=== PATIENT | male | born 1980 | race Caucasian/White ===

== ENCOUNTER 2024-04-21 10:45 | Inpatient (IN) ==
--- NOTE | 2024-04-21 11:35 | Emergency Department Note ---
History of Present Illness General Chief Complaint: Abdominal Pain Stated Complaint: LOWER ABD PAIN, POSSIBLE ADHESSION FROM SURG Time Seen by Provider: 04/21/24 11:04 History of Present Illness Provider Complaint: abdominal pain Onset (ago): 2 day(s) Pain Consistency: intermittent Location: LLQ Radiation: LUQ, RUQ and RLQ Maximum Pain Intensity: 6 Current Pain Intensity: 6 Quality: + stabbing and + sharp Relieved By: + nothing Exacerbated By: + nothing Context: no foreign travel, no possible food poisoning, no sick contacts, no recent antibiotic use, no recent surgery/procedure or no recent injury Associated Symptoms: + nausea and + vomiting; no diarrhea, no fever, no chills, no constipation, no dysuria, no hematemesis, no hematochezia, no melena, no hematuria, no chest pain and no breathing difficulty Patient reports he was in an outside facility yesterday and had a CT scan done which showed a small bowel obstruction and they wanted to send him to another facility but he refused and left. Home Medications Medication Instructions Recorded Confirmed Type triamcinolone acetonide 0.1 % 1 applic topical DAILY PRN ud 08/21/22 04/21/24 History topical cream clobetasol 0.05 % topical cream 1 applic topical DAILY PRN Other 01/30/23 04/21/24 History acetaminophen 500 mg tablet 500 mg PO Q6H PRN Pain 04/21/24 04/21/24 History calcipotriene 0.005 % topical 1 applic topical DAILY PRN flare 04/21/24 04/21/24 History ointment clobetasol 0.05 % topical ointment 1 applic topical DAILY 04/21/24 04/21/24 History cyclobenzaprine 10 mg tablet 10 mg PO TID PRN Muscle Spasms 04/21/24 04/21/24 History Allergies Allergy/AdvReac Type Severity Reaction Status Date / Time neomycin Allergy Unknown unsure - Verified 04/21/24 13:43 as a child Past Med/Surg History Problem List SBO (small bowel obstruction) (Acute) Adenocarcinoma of rectosigmoid junction (Chronic) Encounter for pre-operative examination BRBPR (bright red blood per rectum) Rectal cancer Medical History Rectal cancer dx'd 08/2022. oral chemo + radiation. Skin cancer, basal cell History of COVID-2020 -- moderate to severe flu like symptoms - no hospitalization Psoriasis Surgical History H/O colectomy Port-A-Cath in place (10/24/22) Insertion Access Port with Fluoroscopy(Right) - Nemesio Dinh, , FACS Hx of colonoscopy History of tooth extraction Family History Mother No problems noted. Father Throat cancer Family/Other No history of cancer Pt has 5 1/2 brothers - no cancer Pt has 2 1/2 sisters and 1 sister - no cancer Son No problems noted. Daughter No problems noted. Daughter No problems noted. Other No family history of adverse response to anesthesia Denies family history of Crohn's disease Colorectal cancer Ulcerative colitis Social History Smoking Status: Former smoker Tobacco Type: Cigarettes Age Started Using Tobacco: 19; Age Quit Using Tobacco: 34; Cigarettes Per Day: 1/2 PPD when smoked; Second Hand Exposure: No; Do You Dip or Chew Tobacco: Yes (advised. 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 How many Children do You have: 3 Feels Safe at Home: Yes Diet: regular caffeine: Yes (3-5 cups/day) during the past year weight has: remained stable Assistive Devices: None Physical Exam 2 Vital Signs: Vital Signs - 24 hr 04/21/24 10:59 04/21/24 11:44 04/21/24 11:47 Temperature 36.6 C Temperature Source Temporal Artery Sc an Pulse Rate 71 Pulse Rate [Apical ] 64 Pulse Rhythm [Apic al] Pulse Strength [Ap ical] Normal Respiratory Rate 17 18 Respiratory Effort / Characteristics Non-Labored Sponta neous Non-Labored Sponta neous Respiratory Depth Normal Normal Respiratory Patter n Regular Regular Blood Pressure 129/83 Blood Pressure [Ri ght Arm] 123/83 Blood Pressure Janessa n 98 Blood Pressure Janessa n [Right Arm] 96 Blood Pressure Pos ition [Right Arm] Pulse Oximetry 97 97 97 Oxygen Delivery Me thod Room Air Room Air Room Air Sepsis Recent Feve r Within 48 Hours No Sepsis New/Unexpla ined Change in Men bettye Status N/A Sepsis Action Take n by Nursing No Action Required 04/21/24 12:33 04/21/24 13:55 04/21/24 15:00 Temperature Temperature Source Pulse Rate 69 Pulse Rate [Apical ] 66 65 Pulse Rhythm [Apic al] Regular Pulse Strength [Ap ical] Normal Normal Respiratory Rate 18 18 Respiratory Effort / Characteristics Non-Labored Sponta neous Non-Labored Sponta neous Respiratory Depth Normal Normal Respiratory Patter n Regular Regular Blood Pressure Blood Pressure [Ri ght Arm] 114/84 116/86 Blood Pressure Janessa n Blood Pressure Janessa n [Right Arm] 94 96 Blood Pressure Pos ition [Right Arm] Lying Pulse Oximetry 97 94 Oxygen Delivery Me thod Room Air Room Air Sepsis Recent Feve r Within 48 Hours Sepsis New/Unexpla ined Change in Men bettye Status Sepsis Action Take n by Nursing Physical Exam: Physical Exam GENERAL: oriented to person, place, and time. appears well-developed and well- nourished. She does not appear distressed. HENT: Exam performed. -Head: Normocephalic and atraumatic. -Right Ear: External ear normal. No mastoid erythema -Left Ear: External ear normal. No mastoid erythema -Mouth/Throat: The oropharynx is clear and moist. No trismus in the jaw. No dental abscesses or uvula swelling. No oropharyngeal exudate or tonsillar abscesses. EYES: Conjunctivae and EOM are normal.Right eye exhibits no discharge. Left eye exhibits no discharge. No scleral icterus. NECK: Normal range of motion. Neck supple. No JVD present. No tracheal deviation and normal range of motion present. CV: Normal rate, regular rhythm, normal heart sounds and intact distal pulses. There is no peripheral edema. Palpable radial pulses bue. PULM/CHEST: Effort normal and breath sounds normal. No respiratory distress. No stridor. no wheezes.no rales. -Chest Wall: no tenderness to palpation ABD: The abdomen is soft. Psoriasis patches over the anterior abdominal wall . no distension. No mass is present. Diffuse tenderness to palpation. There is no rebound, no guarding. MUSC/SKEL: Normal range of motion. There is no peripheral edema, tenderness or deformity. NEURO: Motor and sensation grossly intact. SKIN: Skin is warm and dry. not diaphoretic. PSYCH: normal mood and affect. Behavior is normal. Judgment and thought content normal. Course Course 1104: The patient was evaluated in room C7. A complete history and physical exam was performed Cardiac monitoring: An order was placed for continuous cardiac monitoring. The monitor shows a rate of 70 with sinus rhythm interpreted by de 1314: Vital signs stable. Labs are unremarkable. Imaging shows small bowel obstruction with possible anastomotic stricture. Discussed case with Joseph MCRAE for Dr. Dinh who states to admit to medicine and they will be on consult. 1345: [facility] team made aware. General surgery evaluated the patient at bedside. Administered Medications Sodium Chloride (Nss) 1,000 mls @ 80 mls/hr IV .[id number] HECTOR Stop: 04/22/24 13:14 Last Admin: 04/21/24 14:01 Dose: 80 mls/hr Documented By: MEDINA Discontinued Medications Hydromorphone HCl (Hydromorphone Inj 1 Mg/Ml Syringe) 1 mg IV NOW STA Stop: 04/21/24 11:49 Last Admin: 04/21/24 11:56 Dose: 1 mg Documented By: MEDINA Hydromorphone HCl (Hydromorphone Inj 1 Mg/Ml Syringe) 1 mg IV NOW STA Stop: 04/21/24 13:54 Last Admin: 04/21/24 14:02 Dose: 1 mg Documented By: MEDINA Ioversol (Optiray 320 100ml) 94 ml IV ONCE ONE Stop: 04/21/24 12:25 Last Admin: 04/21/24 12:24 Dose: 94 ml Documented By: MIKAEL Ondansetron HCl (Ondansetron Inj 2 Mg/Ml 2 Ml Vial) 4 mg IV NOW STA Stop: 04/21/24 11:49 Last Admin: 04/21/24 11:54 Dose: 4 mg Documented By: MEDINA Medical Decision Making Laboratory Data Attestation: I reviewed the patient's lab results. 04/21/24 11:15 04/21/24 11:15 Lab Results 04/21/24 Range/Units 11:15 WBC 5.50 (4.8-10.8) K/ul RBC 4.80 (4.70-6.10) M/uL Hgb 14.9 (14.0-18.0) g/dl Hct 42.7 (42.0-52.0) % MCV 89.0 (80.0-100.0) fL MCH 31.0 (25.0-34.0) pg MCHC 34.9 (32.0-36.0) g/dL RDW Std Deviation 37.2 (36.4-46.3) fL RDW Coeff of Florencia 11.5 (11.5-14.5) % Plt Count 183 (130-400) K/uL MPV 10.4 (9.4-12.4) fL Immature Gran % (Auto) 0.2 % Neut % (Auto) 79.0 % Lymph % (Auto) 9.1 % [place] % (Auto) 10.4 % Eos % (Auto) 0.9 % Baso % (Auto) 0.4 % Neut # (Auto) 4.35 (1.40-6.50) K/uL Lymph # (Auto) 0.50 L (1.20-3.40) K/uL [place] # (Auto) 0.57 (0.11-0.59) K/uL Eos # (Auto) 0.05 (0.00-0.50) K/uL Baso # (Auto) 0.02 (0.00-0.20) K/uL Immature Gran # (Auto) 0.01 (0.01-0.20) K/uL Sodium 140 (136-145) mmol/L Potassium 4.1 (3.5-5.1) mmol/L Chloride 104 (98-107) mmol/L Carbon Dioxide 27 (21-32) mmol/L Anion Gap 9 (3-11) BUN 12 (6-23) mg/dl Creatinine 0.96 (0.6-1.4) mg/dl Est Cr Clr Drug Dosing 109.3 ml/min eGFR 101.84 BUN/Creatinine Ratio 12.5 (10-20) Glucose 102 H (70-99(Fasting)) mg/dl Calcium 9.7 (8.6-10.3) mg/dl Total Bilirubin 0.7 (0.2-1.0) mg/dl Direct Bilirubin 0.1 (0-0.2) mg/dl AST 16 (13-39) U/L ALT 12 (7-52) U/L Alkaline Phosphatase 47 (34-104) U/L Total Protein 7.2 (6.0-8.3) gm/dl Albumin 4.5 (3.4-5.0) gm/dl Lipase 13 (11-82) U/L Imaging Data Radiologist's Impression: Abdomen/Pelvis CT 04/21/24 11:18 CT OF THE ABDOMEN AND PELVIS WITH CONTRAST CLINICAL HISTORY: Evaluate for small bowel obstruction. Rectal cancer. COMPARISON STUDY: CT of the abdomen and pelvis March 25, 2024. PET/CT April 09, 2024. TECHNIQUE: Following IV administration of Optiray, axial images of the abdomen and pelvis were obtained from the lung bases to the proximal femurs. Images were reviewed in the axial, sagittal, and coronal planes. IV contrast was administered without complication. Automated exposure control was utilized for the study. A dose lowering technique was utilized adhering to the principles of ALARA. CT DOSE: 1207.11 mGy.cm FINDINGS: Lung bases are unremarkable. No pneumatosis, free air or portal venous gas is present. There is hyperdense material within the gallbladder is noted. There is no pericholecystic infiltration. There is trace perihepatic ascites. No hepatic lesions are present. The spleen, adrenal glands, kidneys and pancreas are unremarkable with the exception of a nonobstructing 6 mm left renal calculus. There are no ureteral calculi. There is no hydronephrosis. Bladder wall thickening is unchanged. Status post colorectal resection. Presacral stranding and fluid is unchanged. A small amount of fluid within the pelvis has developed. The proximal to mid small bowel is moderately dilated and fluid- filled which is new since PET/CT of April 09, 2024. Transition point is within the right lower quadrant on image [phone] of [id number], within the distal ileum. The transition point is at or just distal to a small bowel anastomosis. The more distal small bowel is decompressed. There is associated mesenteric stranding and a small amount of ascites. The appendix is normal. Multiple enlarged retroperitoneal lymph nodes have slightly increased in size since earlier abdominal CT. These are stable to slightly increased since PET/CT. These measure up to 1.5 x 1.5 cm. IMPRESSION: 1. Interval development of a small bowel obstruction with transition point within the right lower quadrant, within the distal ileum, since PET/CT of April 09, 2024. Associated mesenteric edema and a small amount of ascites. The transition site is at or just distal to small bowel anastomosis. Therefore, this may represent an anastomotic stricture. 2. Redemonstration of several pathologically enlarged retroperitoneal lymph nodes, as shown on prior PET/CT and abdominal CT. 3. Left nephrolithiasis. ACT 112: Negative or not required by law. Electronically signed by: Tai Stein M.D. 04/21/2024 1:02 PM [facility] Narrative 1104: The patient was evaluated in room C7. A complete history and physical exam was performed Cardiac monitoring: An order was placed for continuous cardiac monitoring. The monitor shows a rate of 70 with sinus rhythm interpreted by de 1314: Vital signs stable. Labs are unremarkable. Imaging shows small bowel obstruction with possible anastomotic stricture. Discussed case with Joseph MCRAE for Dr. Dinh who states to admit to medicine and they will be on consult. 1345: [facility] hospitalist team made aware. General surgery evaluated the patient at bedside. Impression & Plan SBO (small bowel obstruction) Discharge Plan Visit Data Chief Complaint: Abdominal Pain Stated Complaint: LOWER ABD PAIN, POSSIBLE ADHESSION FROM SURG ED Provider: Gerardo Suarez Discharge Problem: SBO (small bowel obstruction) Patient Disposition: Admitted As Inpatient Forms Stand Alone Forms: [facility] Prescriptions Prescriptions: No Action triamcinolone acetonide 0.1 % cream 1 applic topical DAILY PRN (Reason: ud) clobetasol 0.05 % cream 1 applic topical DAILY PRN (Reason: Other) cyclobenzaprine 10 mg tablet 10 mg PO TID PRN (Reason: Muscle Spasms) acetaminophen [Tylenol Ex Str Rapid Release] 500 mg Tablet 500 mg PO Q6H PRN (Reason: Pain) clobetasol 0.05 % ointment 1 applic TOPICAL DAILY calcipotriene 0.005 % ointment 1 applic TOPICAL DAILY PRN (Reason: flare) Referrals Referrals: PCP,NO [Primary Care Provider] -
[2024-04-21 11:41] LABS: Basophils # (auto) 0.02 K/uL (0.00-0.20); Basophils % (auto) 0.4 %; Eosinophils # (auto) 0.05 K/uL (0.00-0.50); Eosinophils % (auto) 0.9 %; Hematocrit (blood only) 42.7 % (42.0-52.0); Hemoglobin 14.9 g/dl (14.0-18.0); Immature Granulocytes # (auto) 0.01 K/uL (0.01-0.20); Immature Granulocytes % (auto) 0.2 %; Lymphocytes % (auto) 9.1 %; Mean Corpuscular Hgb Conc 34.9 g/dL (32.0-36.0); Mean Platelet Volume 10.4 fL (9.4-12.4); Monocytes # (auto) 0.57 K/uL (0.11-0.59); Monocytes % (auto) 10.4 %; Neutrophils # (auto) 4.35 K/uL (1.40-6.50); Platelet Count 183 K/uL (130-400); RDW Coefficient of Variation 11.5 % (11.5-14.5); RDW Standard Deviation 37.2 fL (36.4-46.3)
[2024-04-21] MEDS: ONDANSETRON INJ 2 MG/ML 2 ML VIAL IV STA (11:54)
[2024-04-21] MEDS: HYDROmorphone INJ 1 MG/ML SYRINGE IV STA ×2 (11:56→14:02)
[2024-04-21 12:05] LABS: Albumin Level 4.5 gm/dl (3.4-5.0); BUN Creatinine Ratio 12.5 (10-20); Bilirubin Direct 0.1 mg/dl (0-0.2); Bilirubin,Total 0.7 mg/dl (0.2-1.0); Calcium 9.7 mg/dl (8.6-10.3); Creatinine Clr Calc Pharmacy 109.3 ml/min; Potassium 4.1 mmol/L (3.5-5.1); Total Protein 7.2 gm/dl (6.0-8.3)
[2024-04-21] MEDS: OPTIRAY 320 100ml IV ONE (12:24)
--- NOTE | 2024-04-21 13:03 | CT Scan Report ---
CT OF THE ABDOMEN AND PELVIS WITH CONTRAST CLINICAL HISTORY: Evaluate for small bowel obstruction. Rectal cancer. COMPARISON STUDY: CT of the abdomen and pelvis March 25, 2024. PET/CT April 09, 2024. TECHNIQUE: Following IV administration of Optiray, axial images of the abdomen and pelvis were obtain ed from the lung bases to the proximal femurs. Images were reviewed in the axial, sagittal, and coron al planes. IV contrast was administered without complication. Automated exposure control was utilize d for the study. A dose lowering technique was utilized adhering to the principles of ALARA. CT DOSE: 1207.11 mGy.cm FINDINGS: Lung bases are unremarkable. No pneumatosis, free air or portal venous gas is present. Ther e is hyperdense material within the gallbladder is noted. There is no pericholecystic infiltration. T here is trace perihepatic ascites. No hepatic lesions are present. The spleen, adrenal glands, kidney s and pancreas are unremarkable with the exception of a nonobstructing 6 mm left renal calculus. Ther e are no ureteral calculi. There is no hydronephrosis. Bladder wall thickening is unchanged. Status p ost colorectal resection. Presacral stranding and fluid is unchanged. A small amount of fluid within the pelvis has developed. The proximal to mid small bowel is moderately dilated and fluid-filled whic h is new since PET/CT of April 09, 2024. Transition point is within the right lower quadrant on he ge 269 of 417, within the distal ileum. The transition point is at or just distal to a small bowel an astomosis. The more distal small bowel is decompressed. There is associated mesenteric stranding and a small amount of ascites. The appendix is normal. Multiple enlarged retroperitoneal lymph nodes have slightly increased in size since earlier abdominal CT. These are stable to slightly increased since PET/CT. These measure up to 1.5 x 1.5 cm. IMPRESSION: 1. Interval development of a small bowel obstruction with transition point within the right lower everett drant, within the distal ileum, since PET/CT of April 09, 2024. Associated mesenteric edema and a s mall amount of ascites. The transition site is at or just distal to small bowel anastomosis. Therefor e, this may represent an anastomotic stricture. 2. Redemonstration of several pathologically enlarged retroperitoneal lymph nodes, as shown on prior PET/CT and abdominal CT. 3. Left nephrolithiasis. ACT 112: Negative or not required by law. Electronically signed by: Tai Stein M.D. 04/21/2024 1:02 PM
--- NOTE | 2024-04-21 13:36 | Surgery Consultation ---
Date of Consultation April 21, 2024 Assessment & Plan (1) SBO (small bowel obstruction): This is a 43yM with a PMH significant for rectal cancer s/p low anterior resection with loop ileostomy in 04/2023 then later ileostomy reversal 07/[address] Massey [facility] who presents to the [facility] ED on 04/21/24 with complaints of abdominal pain. This is associated with nausea but no emesis. He underwent a CT a/p that revealed a small bowel obstruction with transition point within the right lower quadrant, within the distal ileum, since PET/CT of April 09, 2024. Associated mesenteric edema and a small amount of ascites. The transition site is at or just distal to small bowel anastomosis. Therefore, this may represent an anastomotic stricture. It also shows remonstration of several pathologically enlarged retroperitoneal lymph nodes, as shown on prior PET/CT and abdominal CT. The patient had a recent PET scan last week and was told yesterday there is concern for pathologic lymph nodes. He says he will be scheduled for chemo in the near future and does not want to delay this. Outside of his severe abdominal pain with nausea, he denies any fevers/chills, CP/SOB. He states he is passing a small amount of gas and did have a BM this Am. He reports he usually has multiple BM's a day, but this has slowed down for him. Today's blood work shows WBC 5.5, Hbg 14.9, Cr 0.9. Patients vital signs are stable. On exam abdomen is soft, not overly distended, with tenderness to palpation mostly over the old ileostomy site, some in the LLQ and LUQ. Given his history/exam/imaging we believe patient should be admitted for management of his SBO. Keep NPO with IVF. Believe we can hold off on NGT unless develops worsening nausea/vomiting. He is passing some flatus and had BM today. Hopefully patient will recover with conservative measures. We will follow closely. (2) Rectal cancer: Supervising Physician Co-Signing Physician Notes Pnt d/w JOHNNY, labs and imaging reviewed, agree w/ above. H/O rectal cancer s/p neoadjuvant chemo/rads, s/p LAR w/ DLI, s/p ileostomy takedown. Presented with abd pain, partial sbo seen just distal to ileostomy takedown anastomosis. Will treat nonoperatively for now, no NG tube as not vomiting. May need contrasted study in next few days if no improvement. History of Present Illness History of Present Illness This is a 43yM with a PMH significant for rectal cancer s/p low anterior resection with loop ileostomy in 04/2023 then later ileostomy reversal 07/[address] Massey At [facility] who presents to the [facility] ED on 04/21/24 with complaints of abdominal pain. This is associated with nausea but no emesis. He underwent a CT a/p that revealed a small bowel obstruction with transition point within the right lower quadrant, within the distal ileum, since PET/CT of April 09, 2024. Associated mesenteric edema and a small amount of ascites. The transition site is at or just distal to small bowel anastomosis. Therefore, this may represent an anastomotic stricture. It also shows remonstration of several pathologically enlarged retroperitoneal lymph nodes, as shown on prior PET/CT and abdominal CT. The patient had a recent PET scan last week and was told yesterday there is concern for pathologic lymph nodes. He says he will be scheduled for chemo in the near future and does not want to delay this. Outside of his severe abdominal pain with nausea, he denies any fevers/chills, CP/SOB. He states he is passing a small amount of gas and did have a BM this Am. He reports he usually has multiple BMs a day, but this has slowed down for him. He has had nothing to eat today. Allergies Allergy/AdvReac Type Severity Reaction Status Date / Time neomycin Allergy Unknown unsure - Verified 04/21/24 13:43 as a child Home Medications Medication Instructions Recorded Confirmed Type triamcinolone acetonide 0.1 % 1 applic topical DAILY PRN ud 08/21/22 04/21/24 History topical cream clobetasol 0.05 % topical cream 1 applic topical DAILY PRN Other 01/30/23 04/21/24 History acetaminophen 500 mg tablet 500 mg PO Q6H PRN Pain 04/21/24 04/21/24 History calcipotriene 0.005 % topical 1 applic topical DAILY PRN flare 04/21/24 04/21/24 History ointment clobetasol 0.05 % topical ointment 1 applic topical DAILY 04/21/24 04/21/24 History cyclobenzaprine 10 mg tablet 10 mg PO TID PRN Muscle Spasms 04/21/24 04/21/24 History Patient History Medical History Rectal cancer dx'd 08/2022. oral chemo + radiation. Skin cancer, basal cell History of COVID-2020 -- moderate to severe flu like symptoms - no hospitalization Psoriasis Surgical History H/O colectomy Port-A-Cath in place (10/24/22) Insertion Access Port with Fluoroscopy(Right) - Nemesio Dinh, DO, FACS Hx of colonoscopy History of tooth extraction Family History Mother No problems noted. Father Throat cancer Family/Other No history of cancer Pt has 5 1/2 brothers - no cancer Pt has 2 1/2 sisters and 1 sister - no cancer Son No problems noted. Daughter No problems noted. Daughter No problems noted. Other No family history of adverse response to anesthesia Denies family history of Crohn's disease Colorectal cancer Ulcerative colitis Social History Smoking Status: Former smoker Tobacco Type: Cigarettes Age Started Using Tobacco: 19; Age Quit Using Tobacco: 34; Cigarettes Per Day: 1/2 PPD when smoked; Smoking End Date: 9 years ago; Second Hand Exposure: No; Do You Dip or Chew Tobacco: No; Hx Alcohol Use: No Hx Substance Use: No Preferred Language: Guamanian Communication Ability: Effective Visual Impairment: No Limitations Hearing Ability: Normal Stock Replenisher Required: No Beliefs That Will Affect Care: None marital status: Current Living Situation: Spouse and Family current occupational 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 How many Children do You have: 3 Other Information That Helps Us Care for You: No Feels Safe at Home: Yes Safety Concerns: Feels Safe At This Time Diet: regular caffeine: Yes (3-5 cups/day) during the past year weight has: remained stable Assistive Devices: None Review of Systems Constitutional: no fever and no chills Respiratory: no dyspnea Cardiovascular: no chest pain Gastrointestinal: + abdominal pain and + nausea; no bloati ng and no vomiting decreased bowel movements, + flatus Physical Exam Physical Exam: awake/alert, mildly anxious but no acute distress Constitutional: well developed and well nourished Respiratory: normal respiratory effort Gastrointestinal (Abdomen): Inspection/Auscultation: + abdominal surgical scar (surgical scars noted from prior LAR and ileostomy reversal, no infection); abdomen not distended Percussion/Palpation: + abdomen tender (generalized ttp, but worse in b/l lower abdomen R>L and some LUQ ttp) and abdomen soft; abdomen not rigid Results & Data Vital Signs (Past 12 Hours) Vital Signs Temp Pulse Pulse Resp BP BP Pulse Ox 04/21/24 12:33 69 04/21/24 11:47 97 04/21/24 11:44 64 18 123/83 97 04/21/24 10:59 97.9 F 71 17 129/83 97 O2 Del Method 04/21/24 12:33 04/21/24 11:47 Room Air 04/21/24 11:44 Room Air 04/21/24 10:59 Room Air Diagnostic Findings CT OF THE ABDOMEN AND PELVIS WITH CONTRAST CLINICAL HISTORY: Evaluate for small bowel obstruction. Rectal cancer. COMPARISON STUDY: CT of the abdomen and pelvis March 25, 2024. PET/CT April 09, 2024. TECHNIQUE: Following IV administration of Optiray, axial images of the abdomen and pelvis were obtained from the lung bases to the proximal femurs. Images were reviewed in the axial, sagittal, and coronal planes. IV contrast was administered without complication. Automated exposure control was utilized for the study. A dose lowering technique was utilized adhering to the principles of ALARA. CT DOSE: 1207.11 mGy.cm FINDINGS: Lung bases are unremarkable. No pneumatosis, free air or portal venous gas is present. There is hyperdense material within the gallbladder is noted. There is no pericholecystic infiltration. There is trace perihepatic ascites. No hepatic lesions are present. The spleen, adrenal glands, kidneys and pancreas are unremarkable with the exception of a nonobstructing 6 mm left renal calculus. There are no ureteral calculi. There is no hydronephrosis. Bladder wall thickening is unchanged. Status post colorectal resection. Presacral stranding and fluid is unchanged. A small amount of fluid within the pelvis has developed. The proximal to mid small bowel is moderately dilated and fluid- filled which is new since PET/CT of April 09, 2024. Transition point is within the right lower quadrant on image [id number] of [id number], within the distal ileum. The transition point is at or just distal to a small bowel anastomosis. The more distal small bowel is decompressed. There is associated mesenteric stranding and a small amount of ascites. The appendix is normal. Multiple enlarged retroperitoneal lymph nodes have slightly increased in size since earlier abdominal CT. These are stable to slightly increased since PET/CT. These measure up to 1.5 x 1.5 cm. IMPRESSION: 1. Interval development of a small bowel obstruction with transition point within the right lower quadrant, within the distal ileum, since PET/CT of [facility] 2023. Associated mesenteric edema and a small amount of ascites. The transition site is at or just distal to small bowel anastomosis. Therefore, this may represent an anastomotic stricture. 2. Redemonstration of several pathologically enlarged retroperitoneal lymph nodes, as shown on prior PET/CT and abdominal CT. 3. Left nephrolithiasis. ACT 112: Negative or not required by law. Electronically signed by: Tai Stein M.D. 04/21/2024 1:02 PM PG Care Time/CCT Total # of Minutes Spent Total Time Spent with Patient: Total time spent is greater than 50% in coordination of care (as documented) at patient's floor/unit and/or counseling patient: Coding Level of Care Code 14237 OFFICE CONSULT LVL M Diagnoses SBO (small bowel obstruction) K56.609 Rectal cancer C20
[2024-04-21] MEDS: SODIUM CHLORIDE 0.9% 1,000 ML IV SCH (14:01)
[2024-04-21] MEDS ORDERED: ONDANSETRON INJ 2 MG/ML 2 ML VIAL IV PRN (15:45)
[2024-04-21] MEDS: SODIUM CHLORIDE 0.9% 500 ML IV SCH (16:00)
--- NOTE | 2024-04-21 16:02 | Communication Note ---
Date of Service: April 21, 2024 Asked to admit patient under medicine however he currently has no active acute medical needs. 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 If SBO is not resolving by conservative measures his surgeon in [place] has been informed of his admission and images have been sent. Dr Marie (his oncologist is aware of his admission). He has no routine chronic systemic medications. Labs are unremarkable. Recommend admission under surgery at this time. Please reach out to the decision support manager medical team for any questions, concerns or formal consult if medical needs arise. Case discussed with Janie Davis PA-C and surgery plan to admit patient.
[2024-04-21] MEDS: MoRPHine SULFATE 2 MG/ML CARP IV PRN (16:15)
[2024-04-21] MEDS: MoRPHine SULFATE 4 MG/ML 1 ML CARP\\VIAL IV PRN (20:42)
[2024-04-21] MEDS: HEPARIN SOD 5,000 UNIT/0.5 ML VIAL SQ SCH (22:05)
--- OUTSIDE RECORDS SUMMARY | 2024-04-22 01:28 | External Medical Summary | Summary of Care ---
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 [address] [place] [id number] Nevaeh Cameron MD [address] [id number] Allergies Active Allergy Reactions Criticality Noted Date Comments Neomycin Sulfate 09/26/2005 documented as of this encounter (statuses as of 04/17/2024) Medications oxyCODONE-Acetam inophen 10-300 MG Oral Tablet (Primlev) Take by mouth. Active documented as of this encounter (statuses as of 04/17/2024) Resolved Problems Problem Noted Date Diagnosed Date Resolved Date ADVANCE DIRECTIVE INFORMATION 09/26/2005 04/06/2024 Overview (09/26/2005): no documented as of this encounter (statuses as of 04/17/2024) Social History Tobacco Use Types Packs/Day Years Used Date Smoking Tobacco: Every Day Cigarettes Smokeless Tobacco: Never Comments:weekends Alcohol Use Standard Drinks/Week Comments Yes 0 (1 standard drink = 0.6 oz pur e alcohol) occ Sex and Gender Information Value Date Recorded Sex Assigned at Not on file Legal Sex Male 6:24 AM EST Gender Identity Not on file Sexual Orientation Not on file 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 Please fax the report to his referring Oncologist from [facility]. documented in this encounter Plan of Treatment Health Maintenance Due Date Last Done Comments Lipid Panel 1982 Pneumococcal Vaccine: Pediat rics (0 to 5 Years) and At-Risk Patients (6 to 64 Years) (1 of 2 - PCV) 1988 Depression Screening 1994 DTap/Tdap Vaccines (1 - Tdap) 2001 Hepatitis B Vaccine (1 of 3 - 19+ 3-dose series) 2001 COVID-19 Vaccine (2023-2 5 season) 2024 Influenza Vaccine (FLU shot) (#1) 2024 Diabetes Screening 03/23/2025 03/23/2022 Hepatitis C Screening Completed 06/13/2022 HIV Screening Completed 08/08/2022 HPV (Gardasil) Vaccine Aged Out No lo nger eligible based on patient's age to complete this topic MENINGOCOCCAL (MENACTRA/MENVEO) Aged Out No longer eligible based on patient's age to complete this topic documented as of this encounter Medical Devices Not on filedocumented as of this encounter
--- OUTSIDE RECORDS SUMMARY | 2024-04-22 01:28 | External Medical Summary | Summary of Care ---
Author Name Unknown Organization [facility] Address [address] [place] [address] Phone [phone] Care Team Providers Care Seed Core Operator Name Role Phone Unavailable Primary Care Provider Unavailabl e Reason for Visit * Auth/Cert Specialty Diagnoses / Procedures Referred By Contac t Referred To Contact Diagnoses Abnormal finding on imaging History of colon cancer Abnormal finding on imaging [R93.89] History of colon cancer [Z85.038] Procedures COLONOSCPOY E/ ENDOSCOPIC US COLONOSCOPY FLEXIBLE WITH ENDOSCOPIC ULTRASOUND EXAM Nevaeh Cameron MD [address] [place] [address] Phone: tel: fax: ENDO O[facility], Endoscopy Room [facility] [address] [place] [phone] Phone: tel: Referral ID Status Reason Start Date Expiration Date Visits Re quested Visits Authorized [id number] Encounter Details Date Type Department Care Team (Latest Contact Info) Description 04/10/2024 6:18 AM EST - 04/10/2024 9:59 AM EST Hospital Encounter ENDO [facility], Endoscopy Room [facility] [address] [place] [id number] Nevaeh Cameron MD [address] [place] [id number] Various: [facility] Discharge Disposition: Home - Self Care Allergies Active Allergy Reactions Criticality Noted Date Comments Neomycin Sulfate 09/26/2005 documented as of this encounter (statuses as of 04/10/2024) Medications oxyCODONE-Acetam inophen 10-300 MG Oral Tablet (Primlev) Take by mouth. Active AUGMENTIN 875-125 MG PO TABSIndications: Acute pharyngitis,Stre p sore throat,Acute tonsillitis 1 TABLET EVERY 12 HOURS 20 Tab 0 1 04/08/20 24 Discontinu ed(Medicat ion List Clean Up) documented as of this encounter (statuses as of 04/10/2024) Resolved Problems Problem Noted Date Diagnosed Date Resolved Date ADVANCE DIRECTIVE INFORMATION 09/26/2005 04/06/2024 Overview (09/26/2005): no documented as of this encounter (statuses as of 04/10/2024) Social History Tobacco Use Types Packs/Day Years Used Date Smoking Tobacco: Every Day Cigarettes Smokeless Tobacco: Never Comments:weekends Alcohol Use Standard Drinks/Week Comments Yes 0 (1 standard drink = 0.6 oz pur e alcohol) occ Utilities Answer Date Recorded Do you have trouble paying y our heating, water, or electric bill? (Adult - for ages 18 years and over) Not on file 11/19/2023 Is your family able to pay t he heat, water, or electric bill? (Household - for ages 0-17 years) Not on file 11/19/2023 Does your family have access to good internet? (Household - for ages 0-17 years) Not on file 11/19/2023 Social Connections Answer Date Recorded How often do you feel lonely or isolated from those around you? 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 Not on file Not on file Not on f ile documented as of this encounter Last Filed Vital Signs Vital Sign Reading Time Taken Comments Blood Pressure 112/76 04/10/2024 9:20 AM EST Pulse 73 04/10/2024 9:20 AM EST Temperature 36.2 C (97.2 F) 04/10/2024 8:33 AM ES T Respiratory Rate 16 04/10/2024 9:20 AM EST Oxygen Saturation 98% 04/10/2024 9:20 AM EST Inhaled Oxygen Concentration - - Weight 85.7 kg (189 lb) 04/10/2024 7:00 AM EST Height 172.7 cm (5' 8") 04/10/2024 7:00 AM EST Body Mass Index 28.74 04/10/2024 7:00 AM EST documented in this encounter H&P Notes * Nevaeh Cameron MD - 04/10/2024 7:28 AM EST Endoscopy Pre-Procedure Assessment Name: Ish Walter Date: 04/10/2024 Time: 7:28 AM Procedure(s): Colonoscopy; with Indication(s) of post cancer surveillance Endoscopic Ultrasound; with Indication(s) of FNA/FNB of lesions/tissue within or outside the GI tract Endoscopy Pre-Procedure Assessment: Prior to the procedure, the patient was identified. The patient's history, medications and allergies were reviewed as per the Anesthesia Assessment. The patient is competent. The risks and benefits of the proposed procedure and the planned sedation were discussed with the patient. All questions were answered and informed consent for the procedure was obtained. BP 116/83 | Pulse 64 | Temp 36.5 C (97.7 F) (Tympanic) | Resp 18 | Ht 1.727 m (5' 8") | Wt 85.7kg (189 lb) | SpO2 97% | BMI 28.74 kg/m | BSA 2.03 m Review of patient's allergies indicates: Allergen Reactions Neomycin Sulfate Prior to Admission medications Medication Sig Last Dose Discont. oxyCODONE-Acetaminophen 10-300 MG Oral Tablet (Primlev) Take by mouth. Physical Exam: Mental Status Examination: alert and oriented. Airway Examination: normal oropharyngeal airway and neck mobility. Respiratory Examination: clear to auscultation. CV Examination: Regular rate and rythm, no murmurs. ASA Grade: II - A patient with mild systemic disease. After reviewing the risks and benefits, the patient was deemed in satisfactory condition to undergothe procedure. The anesthesia plan was to use sedation. Patient was explained in detail regarding risks, benefits, limitations and alternatives of the above endoscopic procedure. Risks of intravenous sedation used for procedure were also explained. Risks include, but not limited to perforation, bleeding, infection, respiratory distress, cardiac arrest and . Risk of acute pancreatitis and necrosis if ERCP is done. Patient is also aware about the possibility of missed lesion. Patient's questions were answered. The patient verbalized understandingthe information and agreed to undergo the procedure. Discussed with the patient that he/she is at an explicit higher risk for complications in comparison to other patients Nevaeh Cameron MD 04/10/2024 documented in this encounter Procedure Notes * Nori Marie MD - 04/10/2024 7:41 AM ESTAssociated Order(s): UPPER ENDOSCOPIC U/S [facility] Patient Name: Ish Walter Procedure Date: 04/10/2024 7:41 AM Date of : 1980 Admit Type: Outpatient Note Status: Finalized Date of : 1980 Admit Type: Outpatient Age: 43 Room: [facility] Gender: Male Note Status: Finalized Procedure: Upper EUS Indications: Lymphadenopathy on CT scan Providers: Nevaeh Cameron MD (Doctor), Clarence García RN Referring MD: Nori Marie MD (Referring MD) Medicines: Propofol per Anesthesia Complications: No immediate complications. Procedure: Pre-Anesthesia Assessment: - Prior to the procedure, a History and Physical was performed, and patient medications, allergies and sensitivities were reviewed. The patient's tolerance of previous anesthesia was reviewed. - The risks and benefits of the procedure and the sedation options and risks were discussed with the patient. All questions were answered and informed consent was obtained. - Patient identification and proposed procedure were verified prior to the procedure by the physician and the nurse. The procedure was verified in the procedure room. - Pre-procedure physical examination revealed no contraindications to sedation. After obtaining informed consent, the endoscope was passed under direct vision. All instruments were visually inspected immediately before and after removal from the patient to ensure they are fully intact. Throughout the procedure, the patient's blood pressure, pulse, and oxygen saturations were monitored continuously. The GF-UE160 Endoscope ([id number]) was introduced through the mouth, and advanced to the second part of duodenum. The upper EUS was accomplished without difficulty. The patient tolerated the procedure well. Findings & Specimens: ENDOSONOGRAPHIC FINDING: : Three enlarged lymph nodes were visualized in the aortocaval region. The largest measured 18 mm by 10 mm in maximal cross-sectional diameter. The nodes were oval, hypoechoic and had well defined margins. Fine needle biopsy was performed. Color Doppler imaging was utilized prior to needle puncture to confirm a lack of significant vascular structures within the needle path. Three passes were made with the 25 gauge ultrasound core biopsy needle using a transduodenal approach. A visible core of tissuewas obtained. Touch preps were performed. The cellularity of the specimen was adequate. Final cytology results are pending. Verification of patient identification for the specimen was done by the physician and nurse using the patient's name and date. Impression: - Three enlarged lymph nodes were visualized in the aortocaval region. Fine needle biopsy performed. Recommendation: - Await cytology results. - If path does not show malignancy then will need to consult IR to target biopsy the positive lymph node seen on PET scan. Nevaeh Cameron MD 04/10/2024 8:35:33 AM This report has been signed electronically. * Nori Marie MD - 04/10/2024 7:40 AM ESTAssociated Order(s): COLONOSCOPY [facility] Patient Name: Ish Walter Procedure Date: 04/10/2024 7:40 AM Date of : 1980 Admit Type: Outpatient Note Status: Finalized Date of : 1980 Admit Type: Outpatient Age: 43 Room: [facility] Gender: Male Note Status: Finalized Procedure: Colonoscopy Indications: High risk colon cancer surveillance: Personal history of colon cancer Providers: Nevaeh Cameron MD (Doctor), Clarence García RN Referring MD: Nori Marie MD (Referring MD) Medicines: Propofol per Anesthesia Complications: No immediate complications. Procedure: Pre-Anesthesia Assessment: - Prior to the procedure, a History and Physical was performed, and patient medications, allergies and sensitivities were reviewed. The patient's tolerance of previous anesthesia was reviewed. - The risks and benefits of the procedure and the sedation options and risks were discussed with the patient. All questions were answered and informed consent was obtained. - Patient identification and proposed procedure were verified prior to the procedure by the physician and the nurse. The procedure was verified in the procedure room. - Pre-procedure physical examination revealed no contraindications to sedation. After I obtained informed consent, the scope was passed under direct vision. All instruments were visually inspected immediately before and after removal from the patient to ensure they are fully intact. Throughout the procedure, the patient's blood pressure, pulse, and oxygen saturations were monitored continuously. The [id number] Colonoscope ([id number]) was introduced through the anus and advanced to the terminal ileum. The colonoscopy was performed without difficulty. The patient tolerated the procedure well. The quality of the bowel preparation was good. Findings & Specimens: The perianal and digital rectal examinations were normal. The terminal ileum appeared normal. There was evidence of a prior end-to-end colo-colonic anastomosis in the rectum. This was patent and was characterized by healthy appearing mucosa. The anastomosis was traversed. Impression: - The examined portion of the ileum was normal. - Patent end-to-end colo-rectal anastomosis, characterized by healthy appearing mucosa. - No specimens collected. Recommendation: - Discharge patient to home. - Repeat colonoscopy in 3 years for surveillance. - Return to referring physician. Nevaeh Cameron MD 04/10/2024 8:31:43 AM This report has been signed electronically. documented in this encounter Nursing Notes * Danni Rosas RN - 04/10/2024 9:30 AM EST Patient is alert, pain free, passing flatus and tolerating po fluids prior to discharge. Patient has been visited by Dr. Cameron. Patient has received and demonstrates understanding of discharge instructions. Patient is transported via w/c to private auto accompanied by endo staff. * Danni Rosas RN - 04/10/2024 9:25 AM EST D/C instructions given to pt states pain down to a 4. * Danni Rosas RN - 04/10/2024 9:14 AM EST Pt medicated for discomfort. * Danni Rosas RN - 04/10/2024 9:00 AM EST Pt sitting up tolerating PO fluids. * Danni Rosas RN - 04/10/2024 8:50 AM EST Pt sitting up, medication ordered by Dr Lubin for lower abd discomfort. Dr Cameron in with pt discussing results of procedure. * Danni Rosas RN - 04/10/2024 8:33 AM EST Received pt awake and emotional, states lower abd pain a 7, but always has the pain, VSS, CM shoes NSR. Report given by Velvet CARRILLO. * Camden García RN - 04/10/2024 8:29 AM EST FNB of lymph node performed by Dr. Abdulsamad using a [employer] Acquire 25 gauge needle. 3 passes made. Passes 1-2 for slides and RPMI and pass 3 for RPMI. Pt tolerated well No abdominal pressure given See anesthesia record for medication administered during procedure. Camden García RN Pre cleaning of scope at the bedside started by technical adjuster. * Janis Carey RN - 04/10/2024 7:02 AM EST Patient prepped and ready for procedure. Call victor in reach. * Janis Carey RN - 04/10/2024 6:48 AM EST The following pt discharge instructions reviewed with pt prior to prodedure: No driving today. No alcohol today. No signing of legal documents. Rest as much as possible today and can return to normal activities tomorrow. No operating any heavy equipment today. Diet as tolerated. Pt verbalized understanding. documented in this encounter Plan of Treatment Pending Results Name Type Priority Associated Diagnoses Date /Time CYTOLOGY Pathology Routine 04/10/2024 8:3 6 AM EST Scheduled Orders Name Type Priority Associated Diagnoses Orde r Schedule CYTOLOGY Pathology Routine One Time for 1 Occurrences starting 04/10/2024 until 04/10/2024, 1 completed Scheduled Procedures Name Priority Associated Diagnoses Date/Ti me COLONOSCOPY FLEXIBLE WITH ENDOSCOPIC ULTRASOUND EXAM Abnormal finding on imaging History of colon cancer 04/10/2024 7:40 AM EST Health Maintenance Due Date Last Done Comments Lipid Panel 1980 Pneumococcal Vaccine: Pediat rics (0 to 5 Years) and At-Risk Patients (6 to 64 Years) (1 of 2 - PCV) 1988 Depression Screening 1994 DTap/Tdap Vaccines (1 - Tdap) 2001 Hepatitis B Vaccine (1 of 3 - 19+ 3-dose series) 2001 COVID-19 Vaccine (1 - 2023-2 5 season) 2024 Influenza Vaccine (FLU shot) [...] Not on filedocumented as of this encounter Procedures Procedure Name Priority Date/Time Associated Diagnosis Comments US ENDOSCOPIC Routine 04/10/2024 8:16 AM EST UPPER ENDOSCOPIC U/S 04/10/2024 7:41 AM EST COLONOSCOPY 04/10/2024 7:40 AM EST documented in this encounter Results * US ENDOSCOPIC (04/10/2024 8:16 AM EST) Narrative Scheduling, Silent - 04/10/2024 8:46 AM EST This is an imaging study not interpreted or resulted by a [facility] or [facility] contracted radiologist. us Nevaeh Cameron MD RAD ULTRASOUND Final Resul t * UPPER ENDOSCOPIC U/S (04/10/2024 7:41 AM EST) 04/10/2024 7:41 AM EST Narrative Procedure Note Nori Marie MD - 04/10/2024 7:41 AM EST [facility] Name: Ish Walter Procedure Date: 04/10/2024 7:41 AM Date of : 1980 Admit Type: Outpatient Note Status:Finalized Date of : 1980 Admit Type: Outpatient Age: 43 Room: [facility] Gender: Male Note Status: Finalized Procedure: Upper EUS Indications: Lymphadenopathy on CT scan Providers: Nevaeh Cameron MD (Doctor), Clarence García RN Referring MD: Nori Marie MD (Referring MD) Medicines: Propofol per Anesthesia Complications: No immediate complications. Procedure: Pre-Anesthesia Assessment: - Prior to the procedure, a History and Physicalwas performed, and patient medications, allergies and sensitivities werereviewed. The patient's tolerance of previous anesthesia was reviewed. - The risks and benefits of the procedure and thesedation options and risks were discussed with the patient. All questions wereanswered and informed consent was obtained. - Patient identification and proposed procedurewere verified prior to the procedure by the physician and the nurse. The procedure wasverified in the procedure room. - Pre-procedure physical examination revealed nocontraindications to sedation. After obtaining informed consent, the endoscope waspassed under direct vision. All instruments were visually inspected immediatelybefore and after removal from the patient to ensure they are fully intact. Throughout the procedure, the patient's bloodpressure, pulse, and oxygen saturations were monitored continuously. The GF-UE160 Endoscope([id number]) was introduced through the mouth, and advanced to the second part ofduodenum. The upper EUS was accomplished without difficulty. The patienttolerated the procedure well. Findings & Specimens: ENDOSONOGRAPHIC FINDING: : Three enlarged lymph nodes were visualized in the aortocaval region.The largest measured 18 mm by 10 mm in maximal cross-sectional diameter. The nodes were oval,hypoechoic and had well defined margins. Fine needle biopsy was performed. Color Doppler imaging was utilizedprior to needle puncture to confirm a lack of significant vascular structures within the needlepath. Three passes were made with the 25 gauge ultrasound core biopsy needle using a transduodenalapproach. A visible core of tissue was obtained. Touch preps were performed. The cellularity of the specimenwas adequate. Final cytology results are pending. Verification of patient identification for thespecimen was done by the physician and nurse using the patient's name and date. Impression: - Three enlarged lymph nodes were visualized in theaortocaval region. Fine needle biopsy performed. Recommendation: - Await cytology results. - If path does not show malignancy then will needto consult IR to target biopsy the positive lymph node seen on PET scan. Nevaeh Cameron MD 04/10/2024 8:35:33 AM This report has been signed electronically. us Nori Marie MD GASTRO UPPER Final Result * COLONOSCOPY (04/10/2024 7:40 AM EST) 04/10/2024 7:40 AM EST Narrative Procedure Note Nori Marie MD - 04/10/2024 7:40 AM EST [facility] Patient Name: Ish Walter Procedure Date: 04/10/2024 7:40 AM Date of : 1980 Admit Type: Outpatient Note Status:Finalized Date of : 1980 Admit Type: Outpatient Age: 43 Room: [facility] Gender: Male Note Status: Finalized Procedure: Colonoscopy Indications: High risk colon cancer surveillance: Personalhistory of colon cancer Providers: Nevaeh Cameron MD (Doctor), Clarence García RN Referring MD: Nori Marie MD (Referring MD) Medicines: Propofol per Anesthesia Complications: No immediate complications. Procedure: Pre-Anesthesia Assessment: - Prior to the procedure, a History and Physicalwas performed, and patient medications, allergies and sensitivities werereviewed. The patient's tolerance of previous anesthesia was reviewed. - The risks and benefits of the procedure and thesedation options and risks were discussed with the patient. All questions wereanswered and informed consent was obtained. - Patient identification and proposed procedurewere verified prior to the procedure by the physician and the nurse. The procedure wasverified in the procedure room. - Pre-procedure physical examination revealed nocontraindications to sedation. After I obtained informed consent, the scope waspassed under direct vision. All instruments were visually inspected immediatelybefore and after removal from the patient to ensure they are fully intact. Throughout the procedure, the patient's bloodpressure, pulse, and oxygen saturations were monitored continuously. The [id number] ([id number]) was introduced through the anus and advanced to the terminalileum. The colonoscopy was performed without difficulty. The patient tolerated theprocedure well. The quality of the bowel preparation was good. Findings & Specimens: The perianal and digital rectal examinations were normal. The terminal ileum appeared normal. There was evidence of a prior end-to-end colo-colonic anastomosis inthe rectum. This was patent and was characterized by healthy appearing mucosa. The anastomosis wastraversed. Impression: - The examined portion of the ileum was normal. - Patent end-to-end colo-rectal anastomosis,characterized by healthy appearing mucosa. - No specimens collected. Recommendation: - Discharge patient to home. - Repeat colonoscopy in 3 years for surveillance. - Return to referring physician. Nevaeh Cameron MD 04/10/2024 8:31:43 AM This report has been signed electronically. Nori Marie MD GASTRO LOWER Final Result documented in this encounter Administered Medications Inactive Administered Medications - up to 3 most recent administrations Medication Order MAR Action Action Date Dose Rate Site Acetaminophen (Tylenol) tab 650 mg 650 mg, Oral, PRN Pain, Mild, Starting on Sat04/10/24 at 0850, Until Sat04/10/24 at 1359, For 1 dose, Maximum of 4 grams (4000 mg) per day., Post-op HYDROmorphone (Dilaudid) inj 0.5 mg 0.5 mg, IV Push, Q15 MIN PRN Pain, Severe, Starting on Sat04/10/24 at 0858, Until Sat04/10/24 at 1359, Administer only postop in PACU. Hold for respiratory rate less than 12. Administer up to a total of 2mg., PACU Given 04/10/2024 9:11 AM EST 0.5 mg Isolyte-S pH 7.4 infusion Intravenous, at 100 mL/hr, Plasma-LYTE 148, isolyte-S, and isolyte-S pH 7.4 are considered equivalent - including for MAR barcode scanning., CONTINUOUS, Starting on Sat04/10/24 at 0715, Until Sat04/10/24 at 1359, Pre-Op Restarted 04/10/2024 8:32 AM EST Continue from Pre-Op 04/10/2024 7:36 AM EST 100 mL/hr New Bag 04/10/2024 7:02 AM EST 100 mL/hr oxygen GAS Inhalation, OXYGEN, First dose on Sat04/10/24 at 0930, Until Discontinued, Device/Managed by: Low Flow Device, Goal SPO2 (%): Other, Lower-limit SPO2 (%): 88, Upper-limit SPO2 (%): 92, Starting Device: Nasal Cannula, Initial Flow Rate (LPM): 6 LPM for NC; 10 LPM for NRB mask, Lowest Support: Nasal Cannula: Flow 0-6 LPM. Titrate up/down by 1 LPM., Higher Support: Non-Rebreather (NRB) Mask: Minimum of 10 LPM. Titrate to maintain bag inflation., Titration Interval: Q2 minutes and as needed., Notify Provider: Other, Notify Provider [other]: If SpO2 less than 88%, notify provider immediately, If patient is on Room Air in the PACU and SpO2 is greater than 88% but less than 92% place patient on Nasal Cannula If patient is on Room Air in the PACU and SpO2 is less than 88% place patient on NRB Mask documented in this encounter Active and Recently Administered Medications Times are shown in EST. Scheduled Medication Order 04/08/2024 04/09/2024 04/10/2024 oxygen GAS Inhalation, OXYGEN, First dose on Sat04/10/24 at 0930, Until Discontinued, Device/Managed by: Low Flow Device, Goal SPO2 (%): Other, Lower-limit SPO2 (%): 88, Upper-limit SPO2 (%): 92, Starting Device: Nasal Cannula, Initial Flow Rate (LPM): 6 LPM for NC; 10 LPM for NRB mask, Lowest Support: Nasal Cannula: Flow 0-6 LPM. Titrate up/down by 1 LPM., Higher Support: Non-Rebreather (NRB) Mask: Minimum of 10 LPM. Titrate to maintain bag inflation., Titration Interval: Q2 minutes and as needed., Notify Provider: Other, Notify Provider [other]: If SpO2 less than 88%, notify provider immediately, If patient is on Room Air in the PACU and SpO2 is greater than 88% but less than 92% place patient on Nasal Cannula If patient is on Room Air in the PACU and SpO2 is less than 88% place patient on NRB Mask 0930 (Due) Continuous Medication Order 04/08/2024 04/09/2024 04/10/2024 Isolyte-S pH 7.4 infusion Intravenous, at 100 mL/hr, Plasma-LYTE 148, isolyte-S, and isolyte-S pH 7.4 are considered equivalent - including for MAR barcode scanning., CONTINUOUS, Starting on Sat04/10/24 at 0715, Until Sat04/10/24 at 1359, Pre-Op 0702 (New Bag - Prov ider: Janis Carey RN)0736 (Continue from Pre-Op - Provider: Sherly Gutierrez CRNA)08 (Paused - Provider: Sherly Gutierrez CRNA - Comment: Switch to gravity)0832 (Restarted - Provider: Sherly Gutierrez CRNA) PRN Medication Order 04/08/2024 04/09/2024 04/10/2024 Acetaminophen (Tylenol) tab 650 mg 650 mg, Oral, PRN Pain, Mild, Starting on Sat04/10/24 at 0850, Until Sat04/10/24 at 1359, For 1 dose, Maximum of 4 grams (4000 mg) per day., Post-op HYDROmorphone (Dilaudid) inj 0.5 mg 0.5 mg, IV Push, Q15 MIN PRN Pain, Severe, Starting on Sat04/10/24 at 0858, Until Sat04/10/24 at 1359, Administer only postop in PACU. Hold for respiratory rate less than 12. Administer up to a total of 2mg., PACU 0911 (Given - Provid er: Danni Rosas RN) documented in this encounter
--- OUTSIDE RECORDS SUMMARY | 2024-04-22 01:28 | External Medical Summary | Summary of Care ---
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 Dawood Samson's office would like pt.'s biopsy results from 04/10/24 sent to [phone] pt. Has appointment on Saturday would greatly appreciate if fax could be sent before then please advise. documented in this encounter Plan of Treatment Health Maintenance Due Date Last Done Comments Lipid Panel 1982 Pneumococcal Vaccine: Pediat rics (0 to 5 Years) and At-Risk Patients (6 to 64 Years) (1 of 2 - PCV) 1988 Depression Screening 1994 DTap/Tdap Vaccines (1 - Tdap) 2001 Hepatitis B Vaccine (1 of 3 - 19+ 3-dose series) 2001 COVID-19 Vaccine ( - 2023-2 5 season) 2024 Influenza Vaccine [...]
--- OUTSIDE RECORDS SUMMARY | 2024-04-22 01:28 | External Medical Summary | Summary of Care ---
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 Samson's office * Telephone Encounter - Caro Stein OSA - 04/16/2024 4:24 PM EST Amber barnes called in with Dr. Dawood Samson's office would like pt.'s biopsy results from 04/10/24 sent to [phone] pt. Has appointment on Saturday would greatly [...]
--- OUTSIDE RECORDS SUMMARY | 2024-04-22 01:28 | External Medical Summary | Summary of Care ---
Author Name Unknown Organization [facility] Address [address] [place] [address] Phone [phone] Care Team Providers Care Household Appliance Installer Name Role Phone Unavailable Primary Care Provider Unavailabl e Reason for Visit * Reason Onset Date Comments Test Results Lab 04/17/2024 Encounter Details Date Type Department Care Team (Late st Contact Info) Description 04/17/2024 Telephone Gastroenterology, [facility] [address] [place] [address] Nevaeh Cameron MD [address] [place] [address] Test Results Lab Allergies Active Allergy Reactions Criticality Noted Date [...] 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 Please fax the report to his referring Oncologist from [facility]. documented in this encounter Plan of Treatment [...]
[2024-04-22] MEDS ORDERED: HEPARIN 100 UNIT/ML 5ML FLUSH FLUSH PRN (04:16)
[2024-04-22 06:38] LABS: Basophils # (auto) 0.03 K/uL (0.00-0.20); Basophils % (auto) 0.6 %; Eosinophils # (auto) 0.04 K/uL (0.00-0.50); Eosinophils % (auto) 0.8 %; Hematocrit (blood only) 38.7 % (42.0-52.0); Hemoglobin 13.2 g/dl (14.0-18.0); Immature Granulocytes # (auto) 0.01 K/uL (0.01-0.20); Immature Granulocytes % (auto) 0.2 %; Lymphocytes # (auto) 0.49 K/uL (1.20-3.40); Lymphocytes % (auto) 9.8 %; Mean Corpuscular Hemoglobin 30.8 pg (25.0-34.0); Mean Corpuscular Hgb Conc 34.1 g/dL (32.0-36.0); Mean Corpuscular Volume 90.4 fL (80.0-100.0); Mean Platelet Volume 10.5 fL (9.4-12.4); Monocytes # (auto) 0.82 K/uL (0.11-0.59); Monocytes % (auto) 16.3 %; Neutrophils # (auto) 3.63 K/uL (1.40-6.50); Neutrophils % (auto) 72.3 %; Platelet Count 154 K/uL (130-400); RDW Coefficient of Variation 11.6 % (11.5-14.5); RDW Standard Deviation 38.3 fL (36.4-46.3); Red Blood Count 4.28 M/uL (4.70-6.10); White Blood Count 5.02 K/ul (4.8-10.8)
[2024-04-22 07:07] LABS: BUN Creatinine Ratio 13.7 (10-20); Calcium 8.8 mg/dl (8.6-10.3); Creatinine Clr Calc Pharmacy 102.9 ml/min; Potassium 3.8 mmol/L (3.5-5.1)
[2024-04-22] MEDS: LACTATED RINGER'S 1,000 ML IV SCH (07:56)
[2024-04-22] MEDS: ACETAMINOPHEN 1,000 MG/100 ML VIAL IV PRN (07:56)
--- NOTE | 2024-04-22 07:59 | XRay Report ---
EXAM: XR KUB/Abdomen 1 view CLINICAL HISTORY: TECHNIQUE: X-ray image of the abdomen obtained in 1 frontal view. COMPARISON: Prior CT dated 03/25/2024 for comparison. FINDINGS: Gas Pattern: Gas pattern within the abdomen is normal. No evidence of bowel obstruction or distention. Soft Tissues: Soft tissues of the abdomen appear normal without evidence of masses. Liver, spleen, and kidneys are of normal size and position. Small radio-opaque density in left lumbar region likely renal calculus. IMPRESSION: 1. Small radio-opaque density in the left lumbar region likely renal calculus. Stable 2. No acute abnormalities were identified. Electronically signed by Gela Jason 04-22-2024 07:59 AM
--- NOTE | 2024-04-22 08:15 | Surgery Progress Note ---
Date of Service April 22, 2024 Assessment & Plan (1) SBO (small bowel obstruction): Plan: +flatus and bm still abd cramping intermittently VSS , wbc wnl continue IV fluids x1 bag kUB this AM resulted as no obstruction possible diet advancement later this AM will trial sips and chips for now Admission and Anticipated Discharge Date Admission Date: April 21, 2024 Supervising Physician Co-Signing Physician Notes Patient seen and examined, labs and imaging reviewed, agree with above. History of rectal cancer, known to me from prior port placement. Status post LAR with DLI, followed by ileostomy takedown in August. Admitted with small bowel obstruction. Already feels better, still little bit of cramping. He did note that he had lots of vegetables over the past few days. On exam he is afebrile with stable vitals, abdomen minimally distended, mildly tender to palpation in right lower quadrant near old ileostomy site. KUB showed no obstructive pattern with air in the colon. He is passing flatus. Will advance to clear liquids, repeat KUB in the morning. Subjective abd pain intermittent at times started passing flatus this am had sm loose bm yesterday denies sob, cp , f/c Review of Systems Constitutional: no fever and no chills Respiratory: no dyspnea Cardiovascular: no chest pain Gastrointestinal: + cramping; no nausea and no vomiting Musculoskeletal: no problem reported Psychiatric: no confusion Physical Exam Constitutional: well developed, cooperative and comfortable; no acute distress Respiratory: normal respiratory effort; no respiratory distress Cardiovascular: Rate/Rhythm: regular rate Gastrointestinal (Abdomen): Inspection/Auscultation: + abdominal surgical scar; abdomen not distended Percussion/Palpation: + abdomen tender and abdomen soft; abdomen not firm Psychiatric: Orientation: alert and oriented x 3 Results & Data Vital Signs (Past 12 Hours) Vital Signs Temp Pulse Resp BP Pulse Ox O2 Del Method 04/22/24 07:22 98.4 F 78 18 104/64 93 Room Air 04/21/24 20:15 98.1 F 66 16 126/77 96 Room Air Diagnostic Findings [place], [place] [phone] XRay Report Patient: CRISTHIAN MEREDITH Admit Date: 04/21/24 MR#: [id number] Address1: [address] [place] [address] Acct ID:[id number] Address2: Date: 1980 [facility] Zip: [place] [address] Age: 43 Location: 3N Sex: M Room/Bed: [facility] [place] Att Phy: Nemesio Dinh DO Diagnosis: SBO Marzena Phy: PCP,NO Service Date: 04/22/24 Fam Phy: Interpreting Phy: Gela Jason MDAdmit Phy: Nemesio Dinh DO Ordering Phy: Janie Davis PA-C cc: ~ EXAM: XR KUB/Abdomen 1 view CLINICAL HISTORY: TECHNIQUE: X-ray image of the abdomen obtained in 1 frontal view. COMPARISON: Prior CT dated 03/25/2024 for comparison. FINDINGS: Gas Pattern: Gas pattern within the abdomen is normal. No evidence of bowel obstruction or distention. Soft Tissues: Soft tissues of the abdomen appear normal without evidence of masses. Liver, spleen, and kidneys are of normal size and position. Small radio-opaque density in left lumbar region likely renal calculus. IMPRESSION: 1. Small radio-opaque density in the left lumbar region likely renal calculus. Stable 2. No acute abnormalities were identified. Electronically signed by Gela Jason 04-22-2024 07:59 AM Dictated: 04/22/24 0657 Transcribed: Results CBC w Diff Results: RBC 4.28 M/uL (4.70-6.10) L 04/22/24 WBC 5.02 K/ul (4.8-10.8) 04/22/24 Hgb 13.2 g/dl (14.0-18.0) L 04/22/24 Hct 38.7 % (42.0-52.0) L 04/22/24 MCV 90.4 fL (80.0-100.0) 04/22/24 MCH 30.8 pg (25.0-34.0) 04/22/24 MCHC 34.1 g/dL (32.0-36.0) 04/22/24 RDW Standard Deviation 38.3 fL (36.4-46.3) 04/22/24 RDW Coefficient of Variation 11.6 % (11.5-14.5) 04/22/24 Plt Count 154 K/uL (130-400) 04/22/24 MPV 10.5 fL (9.4-12.4) 04/22/24 Nucleated Red Blood Cells % (auto) 0.7 % 01/25 Nucleated RBC Absolute Count (auto) 0.07 K/uL (0.00-0.12) 0 01/25/23 Neutrophils (%) (Auto) 72.3 % 04/22/24 Lymphocytes (%) (Auto) 9.8 % 04/22/24 Monocytes # (Auto) 0.82 K/uL (0.11-0.59) H 04/22/24 Eosinophils # (Auto) 0.04 K/uL (0.00-0.50) 04/22/24 Immature Granulocyte % (Auto) 0.2 % 04/22/24 Neutrophils # (Auto) 3.63 K/uL (1.40-6.50) 04/22/24 Lymphocytes # (Auto) 0.49 K/uL (1.20-3.40) L 04/22/24 Monocytes # (Auto) 0.82 K/uL (0.11-0.59) H 04/22/24 Eosinophils # (Auto) 0.04 K/uL (0.00-0.50) 04/22/24 Basophils # (Auto) 0.03 K/uL (0.00-0.20) 04/22/24 Immature Granulocyte # (Auto) 0.01 K/uL (0.01-0.20) 4 Polychromasia 1+ 01/25/23 Toxic Granulation 1+ 01/25/23 Dohle Bodies 2+ 01/20/23 PG Care Time/CCT Total # of Minutes Spent Total Time Spent with Patient: Total time spent is greater than 50% in coordination of care (as documented) at patient's floor/unit and/or counseling patient: Coding Level of Care Code 18959 SUB INP/OBS CARE 06/27MIN Diagnoses SBO (small bowel obstruction) K56.609
--- NOTE | 2024-04-23 07:48 | XRay Report ---
EXAM: XR KUB/Abdomen 1 view CLINICAL HISTORY: F/U SBO KAB MORALES TECHNIQUE: X-ray image of the abdomen obtained in 1 frontal view. COMPARISON: Prior X-ray dated 04/22/2024 for comparison. FINDINGS: Gas Pattern: Gas pattern within the abdomen is normal. No evidence of bowel obstruction or distention. Soft Tissues: Soft tissues of the abdomen appear normal without evidence of masses or calcifications. Liver, spleen, and kidneys are of normal size and position. Stable small radio-opaque density in left lumbar region likely renal calculus. IMPRESSION: 1. Stable small radio-opaque density in left lumbar region likely renal calculus. 2. No acute abnormalities identified. Electronically signed by Geal Jason 04-23-2024 07:47 AM
[2024-04-23 08:06] LABS: Basophils # (auto) 0.03 K/uL (0.00-0.20); Basophils % (auto) 0.6 %; Eosinophils % (auto) 2.1 %; Hematocrit (blood only) 36.9 % (42.0-52.0); Hemoglobin 12.8 g/dl (14.0-18.0); Immature Granulocytes # (auto) 0.01 K/uL (0.01-0.20); Immature Granulocytes % (auto) 0.2 %; Lymphocytes # (auto) 0.45 K/uL (1.20-3.40); Lymphocytes % (auto) 9.5 %; Mean Corpuscular Hemoglobin 30.9 pg (25.0-34.0); Mean Corpuscular Hgb Conc 34.7 g/dL (32.0-36.0); Mean Corpuscular Volume 89.1 fL (80.0-100.0); Mean Platelet Volume 10.3 fL (9.4-12.4); Monocytes # (auto) 0.81 K/uL (0.11-0.59); Neutrophils # (auto) 3.36 K/uL (1.40-6.50); Neutrophils % (auto) 70.6 %; Platelet Count 151 K/uL (130-400); RDW Coefficient of Variation 11.4 % (11.5-14.5); RDW Standard Deviation 36.6 fL (36.4-46.3); Red Blood Count 4.14 M/uL (4.70-6.10); White Blood Count 4.76 K/ul (4.8-10.8)
[2024-04-23 08:26] LABS: BUN Creatinine Ratio 11.2 (10-20); Calcium 8.9 mg/dl (8.6-10.3); Creatinine Clr Calc Pharmacy 117.9 ml/min
--- NOTE | 2024-04-23 08:48 | Surgery Progress Note ---
Date of Service April 23, 2024 Assessment & Plan (1) SBO (small bowel obstruction): Plan: +flatus and bm abd cramping less, feeling well today VSS , wbc wnl tolerating clears , advan to low fiber stay on low fiber at d/c kUB this AM resulted as no obstruction ok for d/c later this am , f/u with oncology o/p call office with questions/concerns Admission and Anticipated Discharge Date Admission Date: April 21, 2024 Supervising Physician Co-Signing Physician Notes Patient discussed with JOHNNY, labs and imaging reviewed, agree with above. History of rectal cancer, known to me from prior port placement. Status post LAR with DLI, followed by ileostomy takedown in August. Admitted with small bow el obstruction. Tolerated advancing diet yesterday. Passing gas and had bowel movements. Anxious to leave because he had a appointment, so was discharged prior to my arrival. Advised yesterday to avoid bulky fibrous foods. He has had some symptoms like this over the past few weeks, if these continue he was advised to follow-up with his colorectal surgeon at [facility]. Subjective abd cramping less passing flatus and having bms denies sob, cp , f/c Review of Systems Constitutional: no fever and no chills Respiratory: no dyspnea Cardiovascular: no chest pain Gastrointestinal: + cramping; no nausea and no vomiting Musculoskeletal: no problem reported Psychiatric: no confusion Physical Exam Constitutional: well developed, cooperative and comfortable; no acute distress Respiratory: normal respiratory effort; no respiratory distress Cardiovascular: Rate/Rhythm: regular rate Gastrointestinal (Abdomen): Inspection/Auscultation: + abdominal surgical scar; abdomen not distended Percussion/Palpation: + abdomen tender and abdomen soft; abdomen not firm Psychiatric: Orientation: alert and oriented x 3 Results & Data Vital Signs (Past 12 Hours) Vital Signs Temp Pulse Resp BP Pulse Ox O2 Del Method 04/23/24 07:27 98.1 F 67 18 123/72 96 Room Air Results CBC w Diff Results: RBC 4.14 M/uL (4.70-6.10) L 04/23/24 WBC 4.76 K/ul (4.8-10.8) L 04/23/24 Hgb 12.8 g/dl (14.0-18.0) L 04/23/24 Hct 36.9 % (42.0-52.0) L 04/23/24 MCV 89.1 fL (80.0-100.0) 04/23/24 MCH 30.9 pg (25.0-34.0) 04/23/24 MCHC 34.7 g/dL (32.0-36.0) 04/23/24 RDW Standard Deviation 36.6 fL (36.4-46.3) 04/23/24 RDW Coefficient of Variation 11.4 % (11.5-14.5) L 04/23/24 Plt Count 151 K/uL (130-400) 04/23/24 MPV 10.3 fL (9.4-12.4) 04/23/24 Nucleated Red Blood Cells % (auto) 0.7 % 01/25 Nucleated RBC Absolute Count (auto) 0.07 K/uL (0.00-0.12) 0 01/25/23 Neutrophils (%) (Auto) 70.6 % 04/23/24 Lymphocytes (%) (Auto) 9.5 % 04/23/24 Monocytes # (Auto) 0.81 K/uL (0.11-0.59) H 04/23/24 Eosinophils # (Auto) 0.10 K/uL (0.00-0.50) 04/23/24 Immature Granulocyte % (Auto) 0.2 % 04/23/24 Neutrophils # (Auto) 3.36 K/uL (1.40-6.50) 04/23/24 Lymphocytes # (Auto) 0.45 K/uL (1.20-3.40) L 04/23/24 Monocytes # (Auto) 0.81 K/uL (0.11-0.59) H 04/23/24 Eosinophils # (Auto) 0.10 K/uL (0.00-0.50) 04/23/24 Basophils # (Auto) 0.03 K/uL (0.00-0.20) 04/23/24 Immature Granulocyte # (Auto) 0.01 K/uL (0.01-0.20) 4 Polychromasia 1+ 01/25/23 Toxic Granulation 1+ 01/25/23 Dohle Bodies 2+ 01/20/23 PG Care Time/CCT Total # of Minutes Spent Total Time Spent with Patient: Total time spent is greater than 50% in coordination of care (as documented) at patient's floor/unit and/or counseling patient: Coding Level of Care Code 48770 SUB INP/OBS CARE Diagnoses SBO (small bowel obstruction) K56.609
--- NOTE | 2024-04-25 08:04 | Discharge Summary ---
Date of Service April 23, 2024 Admission HPI Per Admitting Provider This is a 43yM with a PMH significant for rectal cancer s/p low anterior resection with loop ileostomy in 04/2023 then later ileostomy reversal 07/[address] Massey [facility] who presents to the [facility] ED on 04/21/24 with complaints of abdominal pain. This is associated with nausea but no emesis. He underwent a CT a/p that revealed a small bowel obstruction with transition point within the right lower quadrant, within the distal ileum, since PET/CT of April 09, 2024. Associated mesenteric edema and a small amount of ascites. The transition site is at or just distal to small bowel anastomosis. Therefore, this may represent an anastomotic stricture. It also shows remonstration of several pathologically enlarged retroperitoneal lymph nodes, as shown on prior PET/CT and abdominal CT. The patient had a recent PET scan last week and was told yesterday there is concern for pathologic lymph nodes. He says he will be scheduled for chemo in the near future and does not want to delay this. Outside of his severe abdominal pain with nausea, he denies any fevers/chills, CP/SOB. He states he is passing a small amount of gas and did have a BM this Am. He reports he usually has multiple BMs a day, but this has slowed down for him. He has had nothing to eat today. Principal Diagnosis small bowel obstruction Discharge Exam Constitutional well developed, cooperative and comfortable; no acute distress Respiratory normal respiratory effort; no respiratory distress Cardiovascular Rate/Rhythm: regular rate Gastrointestinal (Abdomen) Inspection/Auscultation: + abdominal surgical scar; abdomen not distended Percussion/Palpation: + abdomen tender and abdomen soft; abdomen not firm Psychiatric Orientation: alert and oriented x 3 Discharge Data Allergies Allergy/AdvReac Type Severity Reaction Status Date / Time neomycin Allergy Unknown unsure - Verified 04/21/24 13:43 as a child Consultations 04/21/24 13:12 Consult General Surgery Routine 04/21/24 13:18 ED Decision to Admit Stat Ordered Studies 04/21/24 11:18 CT abd pelvis IV con only Stat Hospital Course (1) SBO (small bowel obstruction): Patient is a pleasant 43 yo male that presented to [facility] secondary to abdominal pain (see HPI for details) he was found to have a SBO and was admitted to the hospital for pain control made NPO and given IV fluids. Over the course of his stay the patient's diet was advanced, pain managed on prn meds. The patient began to have bowel movements, and pass flatus his abdominal pain was less than admission and he was tolerating a low fiber diet without n/v. The patient was deemed stable for discharge to home on 04/23/24, he was instructed to keep his oncology appointments. The patient was given discharge instructions, follow up recommendations, return precautions, all questions answered. Total Time Total Time Spent Total Time Spent (In Minutes): 10 Discharge Plan Discharge Items Patient Disposition: Home - Self-Care Reason For Visit: SBO Discharge Diagnosis: sbo Activity: As commented below Lifting: Gradually increase as tolerated Bathing: No limitations Exercise/Sports: Gradually increase as tolerated Driving/Machine Use: No limitations Non-emergency contact: Primary Care Provider Call non-emergency contact if: you have any medication questions, your symptoms worsen, your temperature is above 101.5, your wound has increased redness, your wound has increased drainage and your wound pain has increased Follow-up/Referrals: Nemesio Dinh DO, FACS [Physician] - (call our office with questions/concerns ) Nori Marie MD [Physician] - 04/23/24 1:45 pm PCP,NO [Primary Care Provider] - Diet: Low Fiber Addtl Attending Provider Instructions: continue low fiber diet stay hydrated with water f/u with oncology Pending Studies at Discharge: No Stand-Alone Forms: My [employer], Smoking Cessation Medications and DC Order Prescriptions: Continued triamcinolone acetonide 0.1 % cream 1 applic topical DAILY PRN (Reason: ud) clobetasol 0.05 % cream 1 applic topical DAILY PRN (Reason: Other) cyclobenzaprine 10 mg tablet 10 mg PO TID PRN (Reason: Muscle Spasms) acetaminophen 500 mg Tablet 500 mg PO Q6H PRN (Reason: Pain) clobetasol 0.05 % ointment 1 applic TOPICAL DAILY calcipotriene 0.005 % ointment 1 applic TOPICAL DAILY PRN (Reason: flare) Discharge Orders: Discharge Order (Routine); Ordered 04/23/24 Ordered By: Tai Vicente/Other Patient Handouts: Low-Fiber Diet Admission Data Admit Date/Time: 04/21/24 14:36 Attending Provider: Nemesio Dinh Admit Provider: Nemesio Dinh Primary Care Provider: PCP,NO Other Providers: Nemesio Dinh; Ran Elizondo Other Interventions: Discharge Summary Assessment (RN) Last Done: 04/23/24 09:13 Supervising Physician Co-Signing Physician Notes Patient discussed with JOHNNY, labs and imaging reviewed, agree with above. History of rectal cancer, known to me from prior port placement. Status post LAR with DLI, followed by ileostomy takedown in August. Admitted with small bowel obstruction. Tolerated advancing diet yesterday. Passing gas and had bowel movements. Anxious to leave because he had a appointment, so was discharged prior to my arrival. Advised yesterday to avoid bulky fibrous foods. He has had some symptoms like this over the past few weeks, if these continue he was advised to follow-up with his colorectal surgeon at [facility]. Coding Level of Care Code 40649 IN/OBS DISCH 30 MIN/LESS Diagnoses SBO (small bowel obstruction) K56.609
== END 2024-04-23 09:26 | disposition home or self-care (01) | DRG 389 ==
LOC: ED 10:45 → 3N 14:36

== ENCOUNTER 2024-07-17 09:37 | Inpatient (IN) ==
[2024-07-17 10:40] LABS: Basophils # (auto) 0.08 K/uL (0.00-0.20); Basophils % (auto) 0.5 %; Eosinophils # (auto) 0.08 K/uL (0.00-0.50); Eosinophils % (auto) 0.5 %; Hematocrit (blood only) 44.1 % (42.0-52.0); Hemoglobin 15.4 g/dl (14.0-18.0); Immature Granulocytes # (auto) 0.71 K/uL (0.01-0.20); Immature Granulocytes % (auto) 4.4 %; Lymphocytes # (auto) 0.63 K/uL (1.20-3.40); Lymphocytes % (auto) 3.9 %; Mean Corpuscular Hemoglobin 31.3 pg (25.0-34.0); Mean Corpuscular Hgb Conc 34.9 g/dL (32.0-36.0); Mean Corpuscular Volume 89.6 fL (80.0-100.0); Mean Platelet Volume 11.6 fL (9.4-12.4); Monocytes # (auto) 1.37 K/uL (0.11-0.59); Monocytes % (auto) 8.4 %; Neutrophils # (auto) 13.38 K/uL (1.40-6.50); Neutrophils % (auto) 82.3 %; Platelet Count 159 K/uL (130-400); RDW Coefficient of Variation 13.7 % (11.5-14.5); RDW Standard Deviation 43.8 fL (36.4-46.3); Red Blood Count 4.92 M/uL (4.70-6.10); White Blood Count 16.25 K/ul (4.8-10.8)
[2024-07-17] MEDS: ONDANSETRON INJ 2 MG/ML 2 ML VIAL IV STA (10:46)
--- NOTE | 2024-07-17 10:57 | XRay Report ---
XR chest 1V portable HISTORY: 44 years-old Male Abdominal Pain acute chest and abdominal pain COMPARISON: Chest CT 07/13/2024 TECHNIQUE: AP view of the chest FINDINGS: Cardiac silhouette is mildly enlarged. Right IJ Cbgqyj-a-Gigs catheter distal tip noted in the expect ed location of the inferior SVC. No pneumothorax, pleural effusion, airspace consolidation or pulmona ry edema. Bones of the chest appear grossly intact. IMPRESSION: No acute process. ACT 112: Negative or not required by law. The above report was generated using voice recognition software. It may contain grammatical, syntax o r spelling errors. Electronically signed by: Rico Balderas M.D. 07/17/2024 10:56 AM
[2024-07-17 11:00] LABS: Albumin Globulin Ratio 1.6 (0.9-2); Albumin Level 4.5 gm/dl (3.4-5.0); BUN Creatinine Ratio 9.5 (10-20); Bilirubin,Total 0.3 mg/dl (0.2-1.0); Calcium 9.4 mg/dl (8.6-10.3); Creatinine Clr Calc Pharmacy 110.8 ml/min; Globulin 2.9 gm/dl (2.5-4.0); Total Protein 7.4 gm/dl (6.0-8.3)
--- NOTE | 2024-07-17 11:01 | Emergency Department Note ---
History of Present Illness General Chief complaint: GI Assessment Stated complaint: POSSIBLE BOWEL OBSTRUCTION Time Seen by Provider: 07/17/24 10:34 History of Present Illness Maximum Pain Intensity: 10 Patient is a 44-year-old male with past medical history significant for recurrent rectal carcinoma who presents to the emergency department for evaluation of lower abdominal pain, nausea and vomiting that started yesterday. History of rectal carcinoma treated with chemotherapy, radiation, low anterior resection, followed by ileostomy reversal, and currently receiving chemo for recurrent disease noted in lymph nodes only. He actually just had a chest, abdomen and pelvis CT scan 4 days ago, which noted improvement in the gama disease, and no other acute findings. Patient reports that he was feeling well until yesterday, when he developed lower abdominal pain, nausea and vomiting. He reports wavelike cramping in the abdomen. He was nauseous, and vomited once at home, tried using Tylenol and ibuprofen, without relief. He has Zofran but did not try this. He rates his pain a 10/10. He did have a bowel movement yesterday around 1630, he states that it was loose, but this is chronic for him secondary to the surgery and chemotherapy. There was some blood on the toilet tissue, but bowel movement was not grossly bloody, no melena. No fever or chills. He did try calling to oncology, but due to his symptoms came to the emergency department. He has subsequently vomited twice while I was in the room, taking the history. Home Medications Medication Instructions Recorded Confirmed Type triamcinolone acetonide 0.1 % 1 applic topical DAILY PRN ud 08/21/22 07/17/24 History topical cream clobetasol 0.05 % topical cream 1 applic topical DAILY PRN Other 01/30/23 07/17/24 History acetaminophen 500 mg tablet 500 mg PO Q6H PRN Pain 04/21/24 07/17/24 History clobetasol 0.05 % topical ointment 1 applic topical DAILY PRN Other 04/21/24 07/17/24 History cyclobenzaprine 10 mg tablet 10 mg PO TID PRN Muscle Spasms 04/21/24 07/17/24 History diphenoxylate-atropine 2.5 1 tab PO DIRECTED PRN Diarrhea 07/17/24 07/17/24 History mg-0.025 mg tablet ondansetron 8 mg disintegrating 8 mg PO DAILY PRN n/v 07/17/24 07/17/24 History tablet prochlorperazine maleate 10 mg 10 mg PO DIRECTED PRN n/v 07/17/24 07/17/24 History tablet trazodone 50 mg tablet 50 mg PO HS PRN Sleep 07/17/24 07/17/24 History Allergies Allergy/AdvReac Type Severity Reaction Status Date / Time neomycin Allergy Unknown unsure - Verified 04/21/24 13:43 as a child Past Med/Surg History Problem List (Updated 07/17/24 @ 16:16 by Cherie Garcia) Leukocytosis SBO (small bowel obstruction) (Acute) Adenocarcinoma of rectosigmoid junction (Chronic) Encounter for pre-operative examination BRBPR (bright red blood per rectum) Rectal cancer Medical History Rectal cancer dx'd 08/2022. oral chemo + radiation. Skin cancer, basal cell History of COVID-2020 -- moderate to severe flu like symptoms - no hospitalization Psoriasis Surgical History H/O colectomy Port-A-Cath in place (10/24/22) Insertion Access Port with Fluoroscopy(Right) - Nemesio Dinh DO, FACS Hx of colonoscopy History of tooth extraction Family History Mother No problems noted. Father Throat cancer Family/Other No history of cancer Pt has 5 1/2 brothers - no cancer Pt has 2 1/2 sisters and 1 sister - no cancer Son No problems noted. Daughter No problems noted. Daughter No problems noted. Other No family history of adverse response to anesthesia Denies family history of Crohn's disease Colorectal cancer Ulcerative colitis Social History Smoking Status: Never smoker Tobacco Type: Cigarettes Age Started Using Tobacco: 19; Age Quit Using Tobacco: 34; Cigarettes Per Day: 1/2 PPD when smoked; Second Hand Exposure: No; Do You Dip or Chew Tobacco: No; Hx Alcohol Use: No Hx Substance Use: No Preferred Language: Citizen Of [place] Communication Ability: Effective Visual Impairment: No Limitations Hearing Ability: Normal Stabilizing Machine Operator Required: No Beliefs That Will Affect Care: None marital status: Current Living Situation: Spouse and Family current occupational 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 How many Children do You have: 3 Feels Safe at Home: Yes Diet: regular caffeine: Yes (3-5 cups/day) during the past year weight has: remained stable Assistive Devices: None Review of Systems A total of 10 systems reviewed and were otherwise negative Physical Exam Vital Signs Vital Signs - 24 hr 07/17/24 09:48 07/17/24 12:00 07/17/24 13:00 Temperature 36.2 C L Temperature Source Temporal Artery Scan Pulse Rate 84 Pulse Rate [Apical] 72 76 Respiratory Rate 18 18 16 Respiratory Effort / Characteristics Non-Labored Respiratory Depth Normal Respiratory Pattern Regular Blood Pressure 158/106 H Blood Pressure [Right Arm] 147/91 H Blood Pressure Mean 123 Blood Pressure Mean [Right Arm] 109 Pulse Oximetry 97 94 95 Oxygen Delivery Method Room Air Room Air Room Air Sepsis Recent Fever Within 48 Hours No Sepsis New/Unexplained Change in Mental Status N/A Sepsis Action Taken by Nursing No Action Required CONSTITUTIONAL: Patient is an uncomfortable 44-year-old male who is laying on the gurney, nauseous and having waves of abdominal pain. EYES: Pupils equal, round, reactive to light and accommodation. EOMs intact without nystagmus. Sclera are anicteric. ENT: Tympanic membranes intact, with normal landmarks. External canals are clear. Oral and nasopharynx are clear. Mucous membranes are moist, no lesions, tongue and gums appear normal. CARDIOVASCULAR: Regular rate and rhythm. Peripheral pulses easy to palpable. RESPIRATORY: Breath sounds equal and clear to auscultation. GI: Bowel sounds are present. Well-healed surgical scars are noted. The abdomen is soft, diffusely tender to palpation across the lower abdomen, but no guarding, rebound or rigidity. MUSCULOSKELETAL: Full range of motion of extremities x 4 with good strength. No cyanosis, edema, joint tenderness or swelling. No deformity. INTEGUMENTARY: No lesions or rash, normal skin turgor. Course Course The patient was seen and assessed as above. External medical records are reviewed. He presents to the emergency department for evaluation of abdominal pain, nausea and vomiting. Recent oncology notes and CT scan from 4 days ago were reviewed. IV lock was initiated. Critical pathways implemented from triage included chest x-ray, CBC with differential, CMP, lipase, urinalysis and IV Zofran. After I assessed the patient, he was ordered IV fluids, Dilaudid for pain, Compazine and Benadryl IV for vomiting and CT scan of the abdomen and pelvis. Diagnostics, as interpreted by me: Laboratory studies: Moderately elevated white count at 16,200 with left shift noted. H&H within normal limits. No significant electrolyte imbalance requiring correction. Renal functions are normal. No worrisome transaminitis. Lipase is not elevated. Imaging studies: Chest x-ray clear, no infiltrate or consolidation. CT scan of the abdomen and pelvis with IV contrast notes interval development of a small bowel obstruction since CT from 07/13. Transition site appears to be at the small bowel anastomosis. The patient was reassessed. Laboratory studies and CT scan findings were reviewed with him. He was feeling improved with the IV antiemetics and Dilaudid. Admission discussed and the patient was agreeable. I did discuss the patient with manager enterprise. Consultation placed with general surgery, patient discussed with Adela Bailey PA-C. Please refer to her consultation. Medical admission requested due to current chemotherapy regimen. [facility]. Differential diagnosis: GERD, gastritis, esophagitis, peptic ulcer disease, infectious versus inflammatory colitis/enteritis, foodborne illness, bowel obstruction, perforation, abscess, mass or malignancy, among others. Administered Medications Enoxaparin Sodium (Enoxaparin Inj 40 Mg/0.4 Ml Syr) 40 mg SQ Q24H [facility] Stop: 08/16/24 15:05 Last Admin: 07/17/24 15:27 Dose: 40 mg Documented By: KAIN Hydromorphone HCl (Hydromorphone Inj 1 Mg/Ml Syringe) 1 mg IV Q3H PRN PRN Reason: Pain (8-10) Stop: 07/31/24 15:05 Last Admin: 07/17/24 15:28 Dose: 1 mg Documented By: KAIN Parenteral Electrolytes (Plasma-Lyte A Ph 7.4) 1,000 mls @ 125 mls/hr IV .Q8H [facility] Stop: 07/18/24 15:05 Last Admin: 07/17/24 15:28 Dose: 125 mls/hr Documented By: TNK Discontinued Medications Diphenhydramine HCl (Diphenhydramine 50 Mg/Ml Vial) 50 mg IV NOW STA Stop: 07/17/24 10:59 Last Admin: 07/17/24 12:04 Dose: 50 mg Documented By: ABBEYB Hydromorphone HCl (Hydromorphone Inj 1 Mg/Ml Syringe) 1 mg IV NOW STA Stop: 07/17/24 10:59 Last Admin: 07/17/24 12:02 Dose: 1 mg Documented By: GEETA Prochlorperazine (Compazine) 2 mls @ 1 mls/min IV ONE ONE Stop: 07/17/24 10:59 Last Admin: 07/17/24 12:03 Dose: 1 mls/min Documented By: GEETA Sodium Chloride (Nss) 1,000 mls @ 999 mls/hr IV .Q1H1M [facility]ECT[facility] Stop: 07/17/24 11:59 Last Infusion: 07/17/24 13:13 Dose: Infused Documented By: Admin: 07/17/24 12:05 Dose: 999 mls/hr Documented By: GEETA Ioversol (Optiray 320 100ml) 93 ml IV ONCE ONE Stop: 07/17/24 11:23 Last Admin: 07/17/24 11:22 Dose: 93 ml Documented By: SHAHRZAD Ondansetron HCl (Ondansetron Inj 2 Mg/Ml 2 Ml Vial) 4 mg IV NOW STA Stop: 07/17/24 09:53 Last Admin: 07/17/24 10:46 Dose: 4 mg Documented By: JOSE Medical Decision Making Differential Diagnosis See ED Course. Medical Records Attestation: I reviewed the patient's medical records. Home Medications Current Medication List: was personally reviewed by me Laboratory Data Attestation: I reviewed the patient's lab results. 07/17/24 09:58 07/17/24 09:58 Lab Results 07/17/24 Range/Units 09:58 WBC 16.25 H (4.8-10.8) K/ul RBC 4.92 (4.70-6.10) M/uL Hgb 15.4 (14.0-18.0) g/dl Hct 44.1 (42.0-52.0) % MCV 89.6 (80.0-100.0) fL MCH 31.3 (25.0-34.0) pg MCHC 34.9 (32.0-36.0) g/dL RDW Std Deviation 43.8 (36.4-46.3) fL RDW Coeff of Florencia 13.7 (11.5-14.5) % Plt Count 159 (130-400) K/uL MPV 11.6 (9.4-12.4) fL Immature Gran % (Auto) 4.4 % Neut % (Auto) 82.3 % Lymph % (Auto) 3.9 % Surry % (Auto) 8.4 % Eos % (Auto) 0.5 % Baso % (Auto) 0.5 % Neut # (Auto) 13.38 H (1.40-6.50) K/uL Lymph # (Auto) 0.63 L (1.20-3.40) K/uL Surry # (Auto) 1.37 H (0.11-0.59) K/uL Eos # (Auto) 0.08 (0.00-0.50) K/uL Baso # (Auto) 0.08 (0.00-0.20) K/uL Immature Gran # (Auto) 0.71 H (0.01-0.20) K/uL Sodium 139 (136-145) mmol/L Potassium 4.0 (3.5-5.1) mmol/L Chloride 109 H (98-107) mmol/L Carbon Dioxide 22 (21-32) mmol/L Anion Gap 8 (3-11) BUN 8 (6-23) mg/dl Creatinine 0.84 (0.6-1.4) mg/dl Est Cr Clr Drug Dosing 110.8 ml/min eGFR 111.66 BUN/Creatinine Ratio 9.5 L (10-20) Glucose 121 H (70-99(Fasting)) mg/dl Calcium 9.4 (8.6-10.3) mg/dl Total Bilirubin 0.3 (0.2-1.0) mg/dl AST 17 (13-39) U/L ALT 13 (7-52) U/L Alkaline Phosphatase 155 H (34-104) U/L Total Protein 7.4 (6.0-8.3) gm/dl Albumin 4.5 (3.4-5.0) gm/dl Globulin 2.9 (2.5-4.0) gm/dl Albumin/Globulin Ratio 1.6 (0.9-2) Lipase 15 (11-82) U/L Imaging Data Attestation: I personally reviewed and interpreted this imaging study as follows: Radiologist's Impression: Chest X-Ray 07/17/24 09:52 XR chest 1V portable HISTORY: 44 years-old Male Abdominal Pain acute chest and abdominal pain COMPARISON: Chest CT 07/13/2024 TECHNIQUE: AP view of the chest FINDINGS: Cardiac silhouette is mildly enlarged. Right IJ [id number] catheter distal tip noted in the expected location of the inferior SVC. No pneumothorax, pleural effusion, airspace consolidation or pulmonary edema. Bones of the chest appear grossly intact. IMPRESSION: No acute process. ACT 112: Negative or not required by law. The above report was generated using voice recognition software. It may contain grammatical, syntax or spelling errors. Electronically signed by: Rico Balderas M.D. 07/17/2024 10:56 AM Abdomen/Pelvis CT 07/17/24 10:59 CT OF THE ABDOMEN AND PELVIS WITH CONTRAST CLINICAL HISTORY: Lower abdominal pain, nausea and vomiting. Evaluate for bowel obstruction. Rectal cancer. COMPARISON STUDY: CT of the abdomen and pelvis July 13, 2024. TECHNIQUE: Following IV administration of 93 mL of Optiray, axial images of the abdomen and pelvis were obtained from the lung bases to the proximal femurs. Images were reviewed in the axial, sagittal, and coronal planes. IV contrast was administered without complication. Automated exposure control was utilized for the study. A dose lowering technique was utilized adhering to the principles of ALARA. CT DOSE: 1004.92 mGy.cm FINDINGS: Lung bases are unremarkable. No pneumatosis, free air or portal venous gas is present. There are no hepatic lesions. Spleen, adrenal glands, right kidney and pancreas are normal. A fibroma left lower pole renal calculus is unchanged. Postoperative findings consistent with colorectal resection are noted. Mild rectal wall thickening remains unchanged. Mildly enlarged left periaortic lymph nodes are unchanged since CT of July 13, 2024 but decreased in size since CT of April 21, 2024. Index left para-aortic lymph node on image 200 of 429 measures 1 x 0.8 cm. Interval development of multiple loops of dilated small bowel. There is a small amount of ascites with mesenteric scarring. Transition point is at a small bowel anastomosis on image 297 of 429. There is an intraluminal cylindrical hypodensity within the anastomosis which measures 3 x 0.8 cm. A few a similar-appearing densities within the immediate upstream small bowel are present. Distal small bowel is decompressed. There are no fluid collections. Major vasculature is patent. IMPRESSION: 1. Interval development of a small bowel obstruction since CT of July 13, 2024. Associated ascites and mesenteric edema. Transition site at the small bowel anastomosis within the pelvis. 3 cm x 0.8 cm intraluminal cylindrical hypodensity within the anastomosis which appears to represent the site of obstruction. A few additional similar appearing intraluminal densities within the immediate upstream small bowel. The appearance is not typical for stool and raises the possibility of ingested material. 2. Prominent left para-aortic lymph nodes, unchanged since recent CT of July 13, 2024 but decreased in size since earlier CT of April 21, 2024. 3. Left nephrolithiasis. ACT 112: Negative or not required by law. Electronically signed by: Tai Stein M.D. 07/17/2024 11:54 AM MDM Narrative See ED Course. Impression & Plan SBO (small bowel obstruction) Discharge Plan Visit Data Chief Complaint: GI Assessment Stated Complaint: POSSIBLE BOWEL OBSTRUCTION ED Provider: Morgan Fine ED Midlevel Provider: Cherie Garcia Discharge Problem: SBO (small bowel obstruction) Patient Disposition: Admitted As Inpatient Discharge Instructions Interventions: ED Discharge Assessment Last Done: 07/17/24 15:06
[2024-07-17] MEDS: OPTIRAY 320 100ml IV ONE (11:22)
--- NOTE | 2024-07-17 11:55 | CT Scan Report ---
CT OF THE ABDOMEN AND PELVIS WITH CONTRAST CLINICAL HISTORY: Lower abdominal pain, nausea and vomiting. Evaluate for bowel obstruction. Rectal c ancer. COMPARISON STUDY: CT of the abdomen and pelvis July 13, 2024. TECHNIQUE: Following IV administration of 93 mL of Optiray, axial images of the abdomen and pelvis we re obtained from the lung bases to the proximal femurs. Images were reviewed in the axial, sagittal, and coronal planes. IV contrast was administered without complication. Automated exposure control wa s utilized for the study. A dose lowering technique was utilized adhering to the principles of ALARA . CT DOSE: 1004.92 mGy.cm FINDINGS: Lung bases are unremarkable. No pneumatosis, free air or portal venous gas is present. Ther e are no hepatic lesions. Spleen, adrenal glands, right kidney and pancreas are normal. A fibroma lef t lower pole renal calculus is unchanged. Postoperative findings consistent with colorectal resection are noted. Mild rectal wall thickening remains unchanged. Mildly enlarged left periaortic lymph node s are unchanged since CT of July 13, 2024 but decreased in size since CT of April 21, 2024. In dex left para-aortic lymph node on image 200 of 429 measures 1 x 0.8 cm. Interval development of mult iple loops of dilated small bowel. There is a small amount of ascites with mesenteric scarring. Trans ition point is at a small bowel anastomosis on image 297 of 429. There is an intraluminal cylindrical hypodensity within the anastomosis which measures 3 x 0.8 cm. A few a similar-appearing densities wi thin the immediate upstream small bowel are present. Distal small bowel is decompressed. There are no fluid collections. Major vasculature is patent. IMPRESSION: 1. Interval development of a small bowel obstruction since CT of July 13, 2024. Associated ascite s and mesenteric edema. Transition site at the small bowel anastomosis within the pelvis. 3 cm x 0.8 cm intraluminal cylindrical hypodensity within the anastomosis which appears to represent the site of obstruction. A few additional similar appearing intraluminal densities within the immediate upstream small bowel. The appearance is not typical for stool and raises the possibility of ingested material . 2. Prominent left para-aortic lymph nodes, unchanged since recent CT of July 13, 2024 but decreas ed in size since earlier CT of April 21, 2024. 3. Left nephrolithiasis. ACT 112: Negative or not required by law. Electronically signed by: Tai Stein M.D. 07/17/2024 11:54 AM
[2024-07-17] MEDS: HYDROmorphone INJ 1 MG/ML SYRINGE IV STA (12:02)
[2024-07-17] MEDS: PROCHLORPERAZINE 2 ML IV ONE (12:03)
[2024-07-17] MEDS: diphenhydrAMINE 50 MG/ML VIAL IV STA (12:04)
[2024-07-17] MEDS: SODIUM CHLORIDE 0.9% 1,000 ML IV SCH (12:05)
--- NOTE | 2024-07-17 13:05 | Surgery Consultation ---
Date of Consultation July 17, 2024 Assessment & Plan (1) SBO (small bowel obstruction): (2) Adenocarcinoma of rectosigmoid junction: This is a 43yM with a PMH significant for rectal cancer s/p low anterior resection with loop ileostomy in 04/2023 then later ileostomy reversal 07/[address] Massey At [facility] who presents to the [facility] ED with complaints of abdominal pain, nausea and vomiting that started last evening. Vomited x 2, bilious in nature. He underwent a CT a/p that revealed a small bowel obstruction with transition point within the right lower quadrant at small bowel anastomosis with possible ingested material at site of transition point. Leukocytosis of 16k, hemodynamically stable, abdomen is soft, with tenderness in RLQ and suprapubic region however no peritonitis. Nausea and vomiting and pain controlled with zofran and pain medication. Patient had fruit with skin and salad prior to symptoms starting which is likely contributing to the CT findings and transient obstruction. No acute surgical intervention required, recommend hospitalist admit, conservative management with bowel rest, iv fluids, pain management and antiemetics as needed, if persistent vomiting would need NGT. Needs low fiber diet on discharge and would benefit from dietary consultation. Discussed with Dr. Shelby who agrees with above, see addendum for further recommendations/plan. History of Present Illness Reason for Consultation: SBO Requesting Physician: Larissa Garcia PA-C History of Present Illness This is a 43yM with a PMH significant for rectal cancer s/p low anterior resection with loop ileostomy in 04/2023 then later ileostomy reversal 07/[address] Massey At [facility] who presents to the [facility] ED with complaints of abdominal pain, nausea and vomiting x 2 that started yesterday. He underwent a CT a/p that revealed a small bowel obstruction with transition point in RLQ at small bowel anastomosis with possible ingested food material at site of transition point. Currently undergoing chemotherapy every 2 weeks for metastatic cancer in lymph nodes. Has had diarrhea with the chemotherapy. Last bowel movement was loose yesterday afternoon, has possible passed some gas since but not much. Currently feeling much better after pain medication and Zofran. Pain about 3/10, 10/10 upon presentation. States he ate fruit with skin on it and salad which he has not had since his last bowel obstruction in April and feels this is the cause of his acute symptoms. Allergies Allergy/AdvReac Type Severity Reaction Status Date / Time neomycin Allergy Unknown unsure - Verified 04/21/24 13:43 as a child Home Medications Medication Instructions Recorded Confirmed Type triamcinolone acetonide 0.1 % 1 applic topical DAILY PRN ud 08/21/22 04/21/24 History topical cream clobetasol 0.05 % topical cream 1 applic topical DAILY PRN Other 01/30/23 04/21/24 History acetaminophen 500 mg tablet 500 mg PO Q6H PRN Pain 04/21/24 04/21/24 History clobetasol 0.05 % topical ointment 1 applic topical DAILY 04/21/24 04/21/24 History cyclobenzaprine 10 mg tablet 10 mg PO TID PRN Muscle Spasms 04/21/24 04/21/24 History diphenoxylate-atropine 2.5 1 tab PO DIRECTED PRN Diarrhea 07/17/24 07/17/24 History mg-0.025 mg tablet ondansetron 8 mg disintegrating 8 mg PO DAILY PRN n/v 07/17/24 07/17/24 History tablet prochlorperazine maleate 10 mg 10 mg PO DIRECTED PRN n/v 07/17/24 07/17/24 History tablet trazodone 50 mg tablet 50 mg PO HS PRN Sleep 07/17/24 07/17/24 History Patient History Medical History Rectal cancer dx'd 08/2022. oral chemo + radiation. Skin cancer, basal cell History of COVID-2020 -- moderate to severe flu like symptoms - no hospitalization Psoriasis Surgical History H/O colectomy Port-A-Cath in place (10/24/22) Insertion Access Port with Fluoroscopy(Right) - Nemesio Dinh DO, FACS Hx of colonoscopy History of tooth extraction Family History Mother No problems noted. Father Throat cancer Family/Other No history of cancer Pt has 5 1/2 brothers - no cancer Pt has 2 1/2 sisters and 1 sister - no cancer Son No problems noted. Daughter No problems noted. Daughter No problems noted. Other No family history of adverse response to anesthesia Denies family history of Crohn's disease Colorectal cancer Ulcerative colitis Social History Smoking Status: Never smoker Tobacco Type: Cigarettes Age Started Using Tobacco: 19; Age Quit Using Tobacco: 34; Cigarettes Per Day: 1/2 PPD when smoked; Second Hand Exposure: No; Do You Dip or Chew Tobacco: No; Hx Alcohol Use: No Hx Substance Use: No Preferred Language: Lebanese Communication Ability: Effective Visual Impairment: No Limitations Hearing Ability: Normal Nutrition Instructor Required: No Beliefs That Will Affect Care: None marital status: Current Living Situation: Spouse and Family current occupational 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 How many Children do You have: 3 Feels Safe at Home: Yes Diet: regular caffeine: Yes (3-5 cups/day) during the past year weight has: remained stable Assistive Devices: None Review of Systems Review of Systems: All systems reviewed & are unremarkable except as noted in HPI & below Physical Exam Constitutional: WD/WN, vitals as above healthy appearing, cooperative, comfortable and + lethargic; no acute distress, not ill appearing, not frail appearing and not in distress Respiratory: normal respiratory effort, lungs clear to auscultation Cardiovascular: RRR, no murmur, no edema Gastrointestinal (Abdomen): Inspection/Auscultation: abdomen normal to inspection, + abdominal surgical scar (ostomy scar, laparoscopic scars) and + hypoactive bowel sounds; abdomen not distended Percussion/Palpation: + abdomen tender (mild in RLQ, suprapubic) and abdomen soft; no guarding, abdomen not rigid and abdomen not firm Skin: no rashes, warm and dry Psychiatric: A+Ox3, euthymic affect Results & Data Vital Signs (Past 12 Hours) Vital Signs Temp Pulse Pulse Resp BP Pulse Ox O2 Del Method 07/17/24 12:00 72 18 94 Room Air 07/17/24 09:48 36.2 C L 84 18 158/106 H 97 Room Air Laboratory Results 07/17/24 Range/Units 09:58 WBC 16.25 H (4.8-10.8) K/ul RBC 4.92 (4.70-6.10) M/uL Hgb 15.4 (14.0-18.0) g/dl Hct 44.1 (42.0-52.0) % MCV 89.6 (80.0-100.0) fL MCH 31.3 (25.0-34.0) pg MCHC 34.9 (32.0-36.0) g/dL RDW Std Deviation 43.8 (36.4-46.3) fL RDW Coeff of Florencia 13.7 (11.5-14.5) % Plt Count 159 (130-400) K/uL MPV 11.6 (9.4-12.4) fL Immature Gran % (Auto) 4.4 % Neut % (Auto) 82.3 % Lymph % (Auto) 3.9 % [place] % (Auto) 8.4 % Eos % (Auto) 0.5 % Baso % (Auto) 0.5 % Neut # (Auto) 13.38 H (1.40-6.50) K/uL Lymph # (Auto) 0.63 L (1.20-3.40) K/uL [place] # (Auto) 1.37 H (0.11-0.59) K/uL Eos # (Auto) 0.08 (0.00-0.50) K/uL Baso # (Auto) 0.08 (0.00-0.20) K/uL Immature Gran # (Auto) 0.71 H (0.01-0.20) K/uL Sodium 139 (136-145) mmol/L Potassium 4.0 (3.5-5.1) mmol/L Chloride 109 H (98-107) mmol/L Carbon Dioxide 22 (21-32) mmol/L Anion Gap 8 (3-11) BUN 8 (6-23) mg/dl Creatinine 0.84 (0.6-1.4) mg/dl Est Cr Clr Drug Dosing 110.8 ml/min eGFR 111.66 BUN/Creatinine Ratio 9.5 L (10-20) Glucose 121 H (70-99(Fasting)) mg/dl Calcium 9.4 (8.6-10.3) mg/dl Total Bilirubin 0.3 (0.2-1.0) mg/dl AST 17 (13-39) U/L ALT 13 (7-52) U/L Alkaline Phosphatase 155 H (34-104) U/L Total Protein 7.4 (6.0-8.3) gm/dl Albumin 4.5 (3.4-5.0) gm/dl Globulin 2.9 (2.5-4.0) gm/dl Albumin/Globulin Ratio 1.6 (0.9-2) Lipase 15 (11-82) U/L Diagnostic Findings CT OF THE ABDOMEN AND PELVIS WITH CONTRAST CLINICAL HISTORY: Lower abdominal pain, nausea and vomiting. Evaluate for bowel obstruction. Rectal cancer. COMPARISON STUDY: CT of the abdomen and pelvis July 13, 2024. TECHNIQUE: Following IV administration of 93 mL of Optiray, axial images of the abdomen and pelvis were obtained from the lung bases to the proximal femurs. Images were reviewed in the axial, sagittal, and coronal planes. IV contrast was administered without complication. Automated exposure control was utilized for the study. A dose lowering technique was utilized adhering to the principles of ALARA. CT DOSE: 1004.92 mGy.cm FINDINGS: Lung bases are unremarkable. No pneumatosis, free air or portal venous gas is present. There are no hepatic lesions. Spleen, adrenal glands, right kidney and pancreas are normal. A fibroma left lower pole renal calculus is unchanged. Postoperative findings consistent with colorectal resection are noted. Mild rectal wall thickening remains unchanged. Mildly enlarged left periaortic lymph nodes are unchanged since CT of July 13, 2024 but decreased in size since CT of April 21, 2024. Index left para-aortic lymph node on image 200 of 429 measures 1 x 0.8 cm. Interval development of multiple loops of dilated small bowel. There is a small amount of ascites with mesenteric scarring. Transition point is at a small bowel anastomosis on image 297 of 429. There is an intraluminal cylindrical hypodensity within the anastomosis which measures 3 x 0.8 cm. A few a similar-appearing densities within the immediate upstream small bowel are present. Distal small bowel is decompressed. There are no fluid collections. Major vasculature is patent. IMPRESSION: 1. Interval development of a small bowel obstruction since CT of July 13, 2024. Associated ascites and mesenteric edema. Transition site at the small bowel anastomosis within the pelvis. 3 cm x 0.8 cm intraluminal cylindrical hypodensity within the anastomosis which appears to represent the site of obstruction. A few additional similar appearing intraluminal densities within the immediate upstream small bowel. The appearance is not typical for stool and raises the possibility of ingested material. 2. Prominent left para-aortic lymph nodes, unchanged since recent CT of July 13, 2024 but decreased in size since earlier CT of April 21, 2024. 3. Left nephrolithiasis. Personally reviewed CT scan images above and concur with above findings
--- NOTE | 2024-07-17 13:17 | History & Physical Report ---
Date of Service July 17, 2024 Assessment & Plan (1) SBO (small bowel obstruction): Plan: 44 y/o male with PMH of Rectal Cancer stage IV currently on chemotherapy here due to abdominal pain, nausea and vomiting found with SBO - Will admit to med surge - Abdomen CT: small bowel obstruction with transition point and small bowel anastomosis within the pelvis. 3 cm x 0.8 cm intraluminal cylindrical hypodensity within the anastomosis which appears to represent the site of obstruction. - Labs remarkable for leukocytosis - Surgery consulted, aprec recommendations - Conservative management, will need NGT if symptoms worsen - continue Zofran as needed - continue Pain medications as needed - IV plasmalyte 125ml/hr - NPO (2) Adenocarcinoma of rectosigmoid junction: Plan: - currently on chemotherapy currently on Folfirinox plus bevacizumab. - Next course on Saturday - last CT with left para-aortic lymph nodes improved from April 2024 (3) Leukocytosis: Plan: Leukocytes 16K with left shift Hemodinamically stable, no fever, no chills, no urinary symtoms No sign of infection, reactive to sbo? Trend curve of fever and labs, consider Empiric Abx if worsen Repeat CBC AM Follow Blood culture Plan FEN: NPO now Code status: full code DVT ppx: Lovenox 24sq Dispo: med/surg History of Present Illness Primary Care Provider: NO PCP 45 y.o male with PMH of Rectal Cancer stage IV currently on chemotherapy here due to SBO. Patient states symptoms started around midnight with pain 10/10 with no resolution with Tylenol. He then developed vomiting and diarrhea. He has history of rectal cancer /p low anterior resection with loop ileostomy in 04/2023 then later ileostomy reversal 07/2023 at [facility]. He was feeling well until midnight that he developed sudden abdominal pain. Had hummus for dinner. Last bowel movement was yesterday around 5 pm. Denied nay SOB, chest pain, fevers, chills, diarrhea, runny nose, palpitations or black stools any other symptoms On my evaluation patient was feeling better, pain almost gone and no nausea. He is currently on chemotherapy for recurrent diseased. Last course of ana maría atment was early this month, currently on Folfirinox plus bevacizumab. He refers tolerating well. No acute pain before this episodes. Recently had a chest, abdomen and pelvis Ct scan 4 days ago which noted improvement of the disease. Patient had SBO April 2024, no surgery intervention at that time ED course: surgery consulted. IV fluids started. Pain medication and antinausea given Allergies Allergy/AdvReac Type Severity Reaction Status Date / Time neomycin Allergy Unknown unsure - Verified 04/21/24 13:43 as a child Home Medications Medication Instructions Recorded Confirmed Type triamcinolone acetonide 0.1 % 1 applic topical DAILY PRN ud 08/21/22 07/17/24 History topical cream clobetasol 0.05 % topical cream 1 applic topical DAILY PRN Other 01/30/23 07/17/24 History acetaminophen 500 mg tablet 500 mg PO Q6H PRN Pain 04/21/24 07/17/24 History clobetasol 0.05 % topical ointment 1 applic topical DAILY PRN Other 04/21/24 07/17/24 History cyclobenzaprine 10 mg tablet 10 mg PO TID PRN Muscle Spasms 04/21/24 07/17/24 History diphenoxylate-atropine 2.5 1 tab PO DIRECTED PRN Diarrhea 07/17/24 07/17/24 History mg-0.025 mg tablet ondansetron 8 mg disintegrating 8 mg PO DAILY PRN n/v 07/17/24 07/17/24 History tablet prochlorperazine maleate 10 mg 10 mg PO DIRECTED PRN n/v 07/17/24 07/17/24 History tablet trazodone 50 mg tablet 50 mg PO HS PRN Sleep 07/17/24 07/17/24 History Past Med/Surg History Problem List (Updated 07/17/24 @ 16:16 by Cherie Garcia) Leukocytosis SBO (small bowel obstruction) (Acute) Adenocarcinoma of rectosigmoid junction (Chronic) Encounter for pre-operative examination BRBPR (bright red blood per rectum) Rectal cancer Medical History Rectal cancer dx'd 08/2022. oral chemo + radiation. Skin cancer, basal cell History of COVID-2020 -- moderate to severe flu like symptoms - no hospitalization Psoriasis Surgical History H/O colectomy Port-A-Cath in place (10/24/22) Insertion Access Port with Fluoroscopy(Right) - Nemesio Dinh, DO, FACS Hx of colonoscopy History of tooth extraction Family History Mother No problems noted. Father Throat cancer Family/Other No history of cancer Pt has 5 1/2 brothers - no cancer Pt has 2 1/2 sisters and 1 sister - no cancer Son No problems noted. Daughter No problems noted. Daughter No problems noted. Other No family history of adverse response to anesthesia Denies family history of Crohn's disease Colorectal cancer Ulcerative colitis Social History Smoking Status: Never smoker Tobacco Type: Cigarettes Age Started Using Tobacco: 19; Age Quit Using Tobacco: 34; Cigarettes Per Day: 1/2 PPD when smoked; Second Hand Exposure: No; Do You Dip or Chew Tobacco: No; Hx Alcohol Use: No Hx Substance Use: No Preferred Language: Filipino Communication Ability: Effective Visual Impairment: No Limitations Hearing Ability: Normal Ruling Machine Feeder Required: No Beliefs That Will Affect Care: None marital status: Current Living Situation: Spouse and Family 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 occupational 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 How many Children do You have: 3 Feels Safe at Home: Yes Diet: regular caffeine: Yes (3-5 cups/day) during the past year weight has: remained stable Assistive Devices: None Review of Systems Review of Systems: a per HPI Physical Exam Constitutional: WD/WN, vitals as above ENMT: external ear and nose normal, oropharynx normal Respiratory: normal respiratory effort, lungs clear to auscultation Cardiovascular: RRR, no murmur, no edema Gastrointestinal (Abdomen): normal bowel sounds, soft, nontender, no hepatosplenomegaly Musculoskeletal: no cyanosis or clubbing, extremities motor strength 5/5 Skin: no rashes, warm and dry Results & Data Results & Data Vital Signs (Past 12 Hours) Vital Signs Temp Pulse Pulse Resp BP Pulse Ox O2 Del Method 07/17/24 12:00 72 18 94 Room Air 07/17/24 09:48 36.2 C L 84 18 158/106 H 97 Room Air Supervising Physician Co-Signing Physician Notes Patient seen and examined, chart reviewed, case discussed with Dr. Seven Morgan MD and I agree with the assessment and plan as above except as otherwise noted Labs and images reviewed 44-year-old male with complicated history of rectal cancer on chemotherapy and history of SBO who presents with SBO with transition point at small bowel anastomosis. Surgery consulted and following. Recommended medical admission due to active chemo. Last bowel movement 1 day ago, no flatus today. Did have some nausea/vomiting however this is improved at time bedside assessment. If worsening Place NGT. Abdomen is soft. Patient does have a leukocytosis however this is likely due to G-CSF which has been given in the last week in conjunction with his chemo. No other infectious symptoms however we will continue to monitor fever curve and white count trend. Agree with symptomatic treatment as above. If any worsened/recurrent nausea/vomiting then placed NGT to low intermittent suction. Resident Activity Tracking Resident Involvement: Resident Care Provided Care Provided: Adult Hospital Medicine
[2024-07-17] MEDS ORDERED: ONDANSETRON INJ 2 MG/ML 2 ML VIAL IV PRN (15:06)
[2024-07-17] MEDS ORDERED: traZODone HCL 50 MG TAB PO PRN (15:06)
[2024-07-17] MEDS: ENOXAPARIN INJ 40 MG/0.4 ML SYR SQ SCH (15:27)
[2024-07-17] MEDS: HYDROmorphone INJ 1 MG/ML SYRINGE IV PRN (15:28)
[2024-07-17] MEDS: PLASMA-LYTE A 1,000 ML IV SCH (15:28)
[2024-07-17] MEDS: ACETAMINOPHEN 1,000 MG/100 ML VIAL IV PRN (20:36)
[2024-07-18 06:53] LABS: Partial Thromboplastin Time 27 Seconds (21-31); Prothrombin Time 10.8 Seconds (9.0-12.0)
[2024-07-18 06:56] LABS: Albumin Globulin Ratio 1.7 (0.9-2); Albumin Level 3.5 gm/dl (3.4-5.0); BUN Creatinine Ratio 11.4 (10-20); Bilirubin,Total 0.3 mg/dl (0.2-1.0); Calcium 8.4 mg/dl (8.6-10.3); Creatinine Clr Calc Pharmacy 115.4 ml/min; Globulin 2.1 gm/dl (2.5-4.0); Potassium 3.7 mmol/L (3.5-5.1); Total Protein 5.6 gm/dl (6.0-8.3)
[2024-07-18 07:13] LABS: Basophils # (auto) 0.04 K/uL (0.00-0.20); Basophils % (auto) 0.4 %; Eosinophils # (auto) 0.04 K/uL (0.00-0.50); Eosinophils % (auto) 0.4 %; Hematocrit (blood only) 36.4 % (42.0-52.0); Hemoglobin 12.5 g/dl (14.0-18.0); Immature Granulocytes # (auto) 0.15 K/uL (0.01-0.20); Immature Granulocytes % (auto) 1.4 %; Lymphocytes % (auto) 5.6 %; Mean Corpuscular Hemoglobin 31.5 pg (25.0-34.0); Mean Corpuscular Hgb Conc 34.3 g/dL (32.0-36.0); Mean Corpuscular Volume 91.7 fL (80.0-100.0); Mean Platelet Volume 11.7 fL (9.4-12.4); Monocytes # (auto) 1.25 K/uL (0.11-0.59); Monocytes % (auto) 11.6 %; Neutrophils # (auto) 8.66 K/uL (1.40-6.50); Neutrophils % (auto) 80.6 %; Platelet Count 132 K/uL (130-400); RDW Coefficient of Variation 14.1 % (11.5-14.5); RDW Standard Deviation 46.4 fL (36.4-46.3); Red Blood Count 3.97 M/uL (4.70-6.10); White Blood Count 10.74 K/ul (4.8-10.8)
--- NOTE | 2024-07-18 10:31 | Surgery Progress Note ---
Date of Service July 18, 2024 Assessment & Plan (1) SBO (small bowel obstruction): (2) Adenocarcinoma of rectosigmoid junction: Plan small bowel obstruction now improving. Passing flatus Advance diet to clears Encourage ambulation Possible discharge in the next day or so Admission and Anticipated Discharge Date Admission Date: July 17, 2024 Subjective feeling better today; passing flatus; no nausea or vomiting Physical Exam Physical Exam: NAD, A & 3 NCAT, no scleral icterus Abdomen: Soft, mild TTP diffusely No rebound or guarding Results & Data Vital Signs (Past 12 Hours) Vital Signs Temp Pulse Resp BP Pulse Ox O2 Del Method 07/18/24 07:49 36.9 C 80 18 112/65 97 Room Air Laboratory Results 07/18/24 07/17/24 Range/Units 06:03 09:58 WBC 10.74 16.25 H (4.8-10.8) K/ul RBC 3.97 L 4.92 (4.70-6.10) M/uL Hgb 12.5 L D 15.4 (14.0-18.0) g/dl Hct 36.4 L 44.1 (42.0-52.0) % MCV 91.7 89.6 (80.0-100.0) fL MCH 31.5 31.3 (25.0-34.0) pg MCHC 34.3 34.9 (32.0-36.0) g/dL RDW Std Deviation 46.4 H 43.8 (36.4-46.3) fL RDW Coeff of Florencia 14.1 13.7 (11.5-14.5) % Plt Count 132 159 (130-400) K/uL MPV 11.7 11.6 (9.4-12.4) fL Immature Gran % (Auto) 1.4 4.4 % Neut % (Auto) 80.6 82.3 % Lymph % (Auto) 5.6 3.9 % [place] % (Auto) 11.6 8.4 % Eos % (Auto) 0.4 0.5 % Baso % (Auto) 0.4 0.5 % Neut # (Auto) 8.66 H 13.38 H (1.40-6.50) K/uL Lymph # (Auto) 0.60 L 0.63 L (1.20-3.40) K/uL [place] # (Auto) 1.25 H 1.37 H (0.11-0.59) K/uL Eos # (Auto) 0.04 0.08 (0.00-0.50) K/uL Baso # (Auto) 0.04 0.08 (0.00-0.20) K/uL Immature Gran # (Auto) 0.15 0.71 H (0.01-0.20) K/uL PT 10.8 (9.0-12.0) Seconds INR 1.0 (0.9-1.1) APTT 27 (21-31) Seconds PTT Ratio 1.0 Sodium 141 139 (136-145) mmol/L Potassium 3.7 4.0 (3.5-5.1) mmol/L Chloride 109 H 109 H (98-107) mmol/L Carbon Dioxide 27 22 (21-32) mmol/L Anion Gap 5 8 (3-11) BUN 10 8 (6-23) mg/dl Creatinine 0.88 0.84 (0.6-1.4) mg/dl Est Cr Clr Drug Dosing 115.4 110.8 ml/min eGFR 110.10 111.66 BUN/Creatinine Ratio 11.4 9.5 L (10-20) Glucose 98 121 H (70-99(Fasting)) mg/dl Calcium 8.4 L 9.4 (8.6-10.3) mg/dl Total Bilirubin 0.3 0.3 (0.2-1.0) mg/dl AST 13 17 (13-39) U/L ALT 9 13 (7-52) U/L Alkaline Phosphatase 109 H 155 H (34-104) U/L Total Protein 5.6 L D 7.4 (6.0-8.3) gm/dl Albumin 3.5 4.5 (3.4-5.0) gm/dl Globulin 2.1 L 2.9 (2.5-4.0) gm/dl Albumin/Globulin Ratio 1.7 1.6 (0.9-2) Lipase 15 (11-82) U/L
--- NOTE | 2024-07-18 10:54 | Hospitalist Progress Note ---
Date of Service July 18, 2024 Assessment & Plan (1) SBO (small bowel obstruction): Plan: This patient is a 44 y/o male with PMH of Rectal Cancer stage IV currently on chemotherapy with mFOLFIRINOX plus bevacizumab here with SBO CT abdomen/pelvis with SBO with transition point and small bowel anastomosis within the pelvis. 3 cm x 0.8 cm intraluminal cylindrical hypodensity within the anastomosis which appears to represent the site of obstruction thought to be ingested food particle. With leukocytosis now resolved, afebrile, improving with bowel movements on 07/18 but then had return of pain and gaseous distention on abdominal x-ray later on 07/18 after trying clear liquids Surgery consulted-appreciate recommendations -Continue conservative management, will need NGT if return of nausea/vomiting or worsening abdominal pain -Continue maintenance IV fluids, IV Dilaudid and Tylenol as needed for pain -Make n.p.o. again -Follow blood cultures drawn on admission due to leukocytosis but no antibiotics necessary -Follow CBC, BMP, magnesium, phosphorus and replace electrolytes as needed (2) Adenocarcinoma of rectosigmoid junction: Plan: With a history of low anterior resection with loop ileostomy 04/2023 then later ileostomy reversal 07/[address] Flor at [facility] He is currently on chemotherapy currently on FOLFIRINOX plus bevacizumab. Discussed his care with oncology-will delay his chemotherapy next week and his colorectal surgeon will schedule an appointment to see him within the next 2 weeks to discuss the possibility of laparoscopy with lysis of adhesions to prevent future bowel obstructions. Avastin can put him at risk for bowel perforation so this may be eliminated from his treatment if he continues to have issues with the bowels CT abdomen/pelvis with left para-aortic lymph nodes improved from April 2024 Mildly elevated alkaline phosphatase is now improved Plan DVT prophylaxis-SQ Lovenox Disposition-continued stay on medical/surgical unit Admission and Anticipated Discharge Date Admission Date: July 17, 2024 Subjective Patient was seen in the mid morning and was having improvement in pain and had 2 bowel movements, passing flatus. No nausea. His diet was advanced to clear liquids and later in the day he started having increasing upper abdominal pain asking for Dilaudid. Diet was made n.p.o. again. No other concerns. I discussed his care with his oncologist at the bedside. I also discussed his care with the surgeon Physical Exam Constitutional: WD/WN, vitals as above Respiratory: normal respiratory effort, lungs clear to auscultation Cardiovascular: RRR, no murmur, no edema Gastrointestinal (Abdomen): Inspection/Auscultation: normal bowel sounds; + abdomen abnormal to inspection (Incisional scars) and abdomen not distended Percussion/Palpation: + abdomen tender (Mild in RLQ and some in LLQ without guarding or rebound) and abdomen soft Psychiatric: A+Ox3, euthymic affect Results & Data Results & Data Vital Signs (Past 12 Hours) Vital Signs Temp Pulse Resp BP Pulse Ox O2 Del Method 07/18/24 07:49 36.9 C 80 18 112/65 97 Room Air Laboratory Results CBC, CMP reviewed Diagnostic Findings Abdominal x-ray series reviewed PG Care Time/CCT Total # of Minutes Spent Total Time Spent with Patient: Total time spent is greater than 50% in coordination of care (as documented) at patient's floor/unit and/or counseling patient: Coding Level of Care Code 76597 SUB INP/OBS CARE 2/35MIN Diagnoses SBO (small bowel obstruction) K56.609 Adenocarcinoma of rectosigmoid junction C19
--- NOTE | 2024-07-18 17:05 | XRay Report ---
EXAM: XR abdomen 2V w PA chest CLINICAL HISTORY: SBO, worsening pain TECHNIQUE: X-ray images of the chest were obtained in posteroanterior (PA) and abdomen in supine projections. COMPARISON: 04/23/2024 FINDINGS: Pulmonary Parenchyma: Lungs are clear bilaterally. No evidence of consolidation, collapse, or focal opacities. tiny right basal nodular density is seen No evidence of pleural effusion or pleural thickening. Heart and Mediastinum: Heart size and shape are normal. right sided venous line in atrial level, No mediastinal widening or masses. No hilar or mediastinal lymphadenopathy. Bony Thorax: Bony thorax appears intact without fractures or deformities. Gas Pattern: Newly seen few air fluid levels suggestive of dilated bowel, for follow-up. Soft Tissues: Soft tissues of the abdomen appear normal without evidence of masses or calcifications. Liver, spleen, and kidneys are of normal size and position. Stable small radio-opaque density in left lumbar region likely renal calculus. IMPRESSION: 1. Right sided venous line in atrial level, No acute cardiopulmonary abnormalities identified. 2. Newly seen few air fluid levels suggestive of dilated bowel, for follow-up. 3. Stable small radio-opaque density in left lumbar region likely renal calculus. Electronically signed by Gela Jason 07-18-2024 5:04 PM
[2024-07-18] MEDS: PLASMA-LYTE A 1,000 ML IV SCH (18:05)
[2024-07-19 06:27] LABS: Basophils # (auto) 0.05 K/uL (0.00-0.20); Basophils % (auto) 0.4 %; Eosinophils # (auto) 0.09 K/uL (0.00-0.50); Eosinophils % (auto) 0.6 %; Hematocrit (blood only) 35.3 % (42.0-52.0); Immature Granulocytes # (auto) 0.31 K/uL (0.01-0.20); Immature Granulocytes % (auto) 2.2 %; Lymphocytes # (auto) 0.69 K/uL (1.20-3.40); Lymphocytes % (auto) 4.8 %; Mean Corpuscular Hemoglobin 30.8 pg (25.0-34.0); Mean Corpuscular Volume 90.7 fL (80.0-100.0); Monocytes # (auto) 1.18 K/uL (0.11-0.59); Monocytes % (auto) 8.3 %; Neutrophils # (auto) 11.92 K/uL (1.40-6.50); Neutrophils % (auto) 83.7 %; Platelet Count 118 K/uL (130-400); RDW Coefficient of Variation 13.9 % (11.5-14.5); RDW Standard Deviation 45.1 fL (36.4-46.3); Red Blood Count 3.89 M/uL (4.70-6.10); White Blood Count 14.24 K/ul (4.8-10.8)
[2024-07-19 06:50] LABS: Albumin Globulin Ratio 1.5 (0.9-2); Albumin Level 3.4 gm/dl (3.4-5.0); BUN Creatinine Ratio 11.3 (10-20); Bilirubin,Total 0.3 mg/dl (0.2-1.0); Calcium 8.3 mg/dl (8.6-10.3); Creatinine Clr Calc Pharmacy 126.9 ml/min; Globulin 2.2 gm/dl (2.5-4.0); Magnesium 1.9 mg/dl (1.7-2.4); Potassium 3.8 mmol/L (3.5-5.1); Total Protein 5.6 gm/dl (6.0-8.3)
[2024-07-19 08:04] VITALS: O2SAT 95
--- NOTE | 2024-07-19 10:45 | XRay Report ---
KUB CLINICAL HISTORY: f/u SBO COMPARISON STUDY: CT of the abdomen and pelvis July 17, 2024. FINDINGS: Moderate small bowel dilatation has mildly improved. Small bowel loops measure up to 4.4 cm in caliber. No evidence for free air on supine exam. Colorectal anastomosis is incidentally noted. 3 mm left renal calculus is present. Pelvic calcifications represent phleboliths. IMPRESSION: Moderate small bowel dilatation, mildly improved since prior exam. The findings suggest a persistent but improving small bowel obstruction. ACT 112: Negative or not required by law. Electronically signed by: Tai Stein M.D. 07/19/2024 10:43 AM
--- NOTE | 2024-07-19 11:35 | Surgery Progress Note ---
Date of Service July 19, 2024 Assessment & Plan (1) SBO (small bowel obstruction): (2) Adenocarcinoma of rectosigmoid junction: Plan small bowel obstruction now improving. Passing flatus Advance diet to clears Encourage ambulation Possible discharge in the next day or so Admission and Anticipated Discharge Date Admission Date: July 17, 2024 Subjective Feeling better. Having bowel movements and flatus. Some abdominal pain Physical Exam Physical Exam: NAD, A & 3 NCAT, no scleral icterus Abdomen: Soft, mild TTP diffusely No rebound or guarding Results & Data Vital Signs (Past 12 Hours) Vital Signs Temp Pulse Resp BP Pulse Ox O2 Del Method 07/19/24 08:02 36.8 C 76 18 126/78 95 Room Air
[2024-07-19] MEDS: oxyCODONE HCL IR 5 MG TAB (IMMEDIATE RELEASE) PO PRN (17:19)
--- NOTE | 2024-07-19 17:50 | Hospitalist Progress Note ---
Date of Service July 19, 2024 Assessment & Plan (1) SBO (small bowel obstruction): Plan: This patient is a 44 y/o male with PMH of Rectal Cancer stage IV currently on chemotherapy with mFOLFIRINOX plus bevacizumab here with recurrent SBO CT abdomen/pelvis with SBO with transition point and small bowel anastomosis within the pelvis. 3 cm x 0.8 cm intraluminal cylindrical hypodensity within the anastomosis which appears to represent the site of obstruction thought to be ingested food particle. With leukocytosis intermittently but remains afebrile, improving today-again moving bowels multiple times and passing flatus, still with intermittent abdominal cramping but overall improved. KUB on 07/19 with resolving SBO but still some dilated loops of bowel Surgery consulted-appreciate recommendations -Advance to clear liquids diet and eventually to low fiber diet -Continue conservative management, would need NGT if return of nausea/vomiting or worsening abdominal pain -Continue maintenance IV fluids through the end of today and then stop, continue IV Dilaudid and Tylenol as needed for pain. Add on p.o. oxycodone in an attempt to get off Dilaudid -Follow blood cultures drawn on admission due to leukocytosis but no antibiotics necessary-leukocytosis may be from Neulasta injection he received 1 week ago -Follow CBC, BMP, magnesium, phosphorus and replace electrolytes as needed-none needed today (2) Adenocarcinoma of rectosigmoid junction: Plan: With a history of low anterior resection with loop ileostomy 04/2023 then later ileostomy reversal 07/[address] Flor at [facility] He is currently on chemotherapy currently on FOLFIRINOX plus bevacizumab. CT abdomen/pelvis with left para-aortic lymph nodes improved from April 2024 Mildly elevated alkaline phosphatase is now resolved With mild thrombocytopenia likely chemotherapy-induced. Leukocytosis may be from Neulasta versus reactive to bowel obstruction. Mild anemia Discussed his care with his oncologist Dr. Marie-will delay his chemotherapy next week and his colorectal surgeon will schedule an appointment to see him within the next 2 weeks to discuss the possibility of laparoscopy with lysis of adhesions to prevent future bowel obstructions. Avastin can put him at risk for bowel perforation so this may be eliminated from his treatment if he continues to have issues with the bowels -Follow CBC, CMP -Follow-up with colorectal surgery within 2 weeks after discharge -Delay further chemotherapy until after seen by colorectal surgery as per oncology recommendations Plan DVT prophylaxis-SQ Lovenox Disposition-continued stay on medical/surgical unit, improving, hopeful to discharge to home in 1 to 2 days Admission and Anticipated Discharge Date Admission Date: July 17, 2024 Subjective Still having some waves of abdominal pain but is improved from yesterday, still taking some Dilaudid and switch to oxycodone in the afternoon. He had multiple bowel movements and is passing flatus. No nausea. He is tolerating clear liquids today. He has been ambulating. Physical Exam Constitutional: WD/WN, vitals as above Respiratory: normal respiratory effort, lungs clear to auscultation Cardiovascular: RRR, no murmur, no edema Gastrointestinal (Abdomen): Inspection/Auscultation: + abdomen distended (Mild) and normal bowel sounds; + abdomen abnormal to inspection (Incisional scars) Percussion/Palpation: + abdomen tender (Mild in RLQ and some in LLQ without guarding or rebound) and abdomen soft Psychiatric: A+Ox3, euthymic affect Results & Data Results & Data Vital Signs (Past 12 Hours) Vital Signs Temp Pulse Resp BP Pulse Ox O2 Del Method 07/19/24 16:20 37.1 C 68 18 142/92 H 95 Room Air 07/19/24 08:02 36.8 C 76 18 126/78 95 Room Air Laboratory Results CBC, CMP, magnesium, phosphorus reviewed Diagnostic Findings KUB x-ray image personally reviewed by me PG Care Time/CCT Total # of Minutes Spent Total Time Spent with Patient: Total time spent is greater than 50% in coordination of care (as documented) at patient's floor/unit and/or counseling patient: Coding Level of Care Code 19285 SUB INP/OBS CARE 2/35MIN Diagnoses SBO (small bowel obstruction) K56.609 Adenocarcinoma of rectosigmoid junction C19
[2024-07-19 19:26] VITALS: RESP 16
[2024-07-20] MEDS: HEPARIN 100 UNIT/ML 5ML FLUSH FLUSH PRN (06:21)
[2024-07-20 06:38] LABS: Basophils # (auto) 0.04 K/uL (0.00-0.20); Basophils % (auto) 0.4 %; Eosinophils # (auto) 0.13 K/uL (0.00-0.50); Eosinophils % (auto) 1.3 %; Hematocrit (blood only) 35.2 % (42.0-52.0); Hemoglobin 12.3 g/dl (14.0-18.0); Immature Granulocytes # (auto) 0.46 K/uL (0.01-0.20); Immature Granulocytes % (auto) 4.6 %; Lymphocytes # (auto) 0.78 K/uL (1.20-3.40); Lymphocytes % (auto) 7.8 %; Mean Corpuscular Hemoglobin 31.6 pg (25.0-34.0); Mean Corpuscular Hgb Conc 34.9 g/dL (32.0-36.0); Mean Corpuscular Volume 90.5 fL (80.0-100.0); Neutrophils # (auto) 7.81 K/uL (1.40-6.50); Neutrophils % (auto) 77.9 %; Platelet Count 119 K/uL (130-400); RDW Coefficient of Variation 13.8 % (11.5-14.5); RDW Standard Deviation 44.9 fL (36.4-46.3); Red Blood Count 3.89 M/uL (4.70-6.10); White Blood Count 10.02 K/ul (4.8-10.8)
[2024-07-20 06:57] LABS: Albumin Globulin Ratio 1.6 (0.9-2); Albumin Level 3.6 gm/dl (3.4-5.0); BUN Creatinine Ratio 8.9 (10-20); Bilirubin,Total 0.3 mg/dl (0.2-1.0); Calcium 8.7 mg/dl (8.6-10.3); Creatinine Clr Calc Pharmacy 128.5 ml/min; Globulin 2.3 gm/dl (2.5-4.0); Magnesium 1.9 mg/dl (1.7-2.4); Phosphorus 3.3 mg/dl (2.5-4.9); Potassium 3.8 mmol/L (3.5-5.1); Total Protein 5.9 gm/dl (6.0-8.3)
[2024-07-20 07:32] VITALS: BP 132/83; TEMP 98.4
[2024-07-20] MEDS: HYDROmorphone INJ 0.5 MG/0.5 ML SYR IV PRN (07:45)
--- NOTE | 2024-07-20 12:24 | Discharge Summary ---
Discharge Summary Date of Service July 20, 2024 Principal Dx & Hospital Course #1 = Principal Diagnosis (1) SBO (small bowel obstruction): Appears to have resolved without surgery. Appreciate surgery consultation and recommendations. Diet has been advanced (2) Adenocarcinoma of rectosigmoid junction: A prescription for oxycodone has been given to the patient to use as needed for any recurrent pain. He will follow-up with oncology and continue outpatient chemotherapy (3) Leukocytosis: Due to acute processes. No sign of infection Plan Home today, July 20 Admission HPI Per Admitting Provider 45 y.o male with PMH of Rectal Cancer stage IV currently on chemotherapy here due to SBO. Patient states symptoms started around midnight with pain 10/10 with no resolution with Tylenol. He then developed vomiting and diarrhea. He has history of rectal cancer /p low anterior resection with loop ileostomy in 04/2023 then later ileostomy reversal 07/2023 at [facility]. He was feeling well until midnight that he developed sudden abdominal pain. Had hummus for dinner. Last bowel movement was yesterday around 5 pm. Denied nay SOB, chest pain, fevers, chills, diarrhea, runny nose, palpitations or black stools any other symptoms On my evaluation patient was feeling better, pain almost gone and no nausea. He is currently on chemotherapy for recurrent diseased. Last course of treatment was early this month, currently on Folfirinox plus bevacizumab. He refers tolerating well. No acute pain before this episodes. Recently had a chest, abdomen and pelvis Ct scan 4 days ago which noted improvement of the disease. Patient had SBO April 2024, no surgery intervention at that time ED course: surgery consulted. IV fluids started. Pain medication and antinausea given Discharge Exam General-alert and oriented x3, no fever, no chills HEENT-head atraumatic and normocephalic, pupils equal and reactive to light, extraocular muscles intact Neck-no lymphadenopathy or thyromegaly, trachea midline Chest-clear to auscultation. No rales, wheezing or rhonchi Cardiac-regular rate and rhythm, normal S1 and S2 Abdomen-normal bowel sounds, no hepatosplenomegaly Extremities-no cyanosis, clubbing, or edema Neuro-cranial nerves II through XII intact, motor and sensory function within normal limits, strength symmetrical, no focal deficits Psych-normal affect, normal mood Discharge Plan Discharge Items Patient Disposition: Home - Self-Care Reason For Visit: SBO Discharge Diagnosis: Recurrent small bowel obstruction Activity: Resume your previous activity Non-emergency contact: Primary Care Provider and Oncologist Call non-emergency contact if: your symptoms worsen Follow-up/Referrals: PCP,NO [Primary Care Provider] - Diet: Regular and Low Fiber Addtl Attending Provider Instructions: Take vmoh-onz-nyowcce Colace 100 mg twice daily for a stool softener. Follow-up with primary care provider and oncology as soon as possible Pending Studies at Discharge: No Stand-Alone Forms: My [facility] [employer], Smoking Cessation Medications and DC Order Prescriptions: New oxycodone 10 mg tablet 10 mg PO Q6H PRN (Reason: pain) Qty: 20 0RF Continued triamcinolone acetonide 0.1 % cream 1 applic topical DAILY PRN (Reason: ud) clobetasol 0.05 % cream 1 applic topical DAILY PRN (Reason: Other) trazodone 50 mg tablet 50 mg PO HS PRN (Reason: Sleep) diphenoxylate-atropine 2.5-0.025 mg tablet 1 tab PO DIRECTED PRN (Reason: Diarrhea) prochlorperazine maleate 10 mg tablet 10 mg PO DIRECTED PRN (Reason: n/v) ondansetron 8 mg tablet,disintegrating 8 mg PO DAILY PRN (Reason: n/v) cyclobenzaprine 10 mg tablet 10 mg PO TID PRN (Reason: Muscle Spasms) acetaminophen 500 mg Tablet 500 mg PO Q6H PRN (Reason: Pain) clobetasol 0.05 % ointment 1 applic TOPICAL DAILY PRN (Reason: Other) Discharge Orders: Discharge Order (Routine); Ordered 07/20/24 Ordered By: Hussein Warren Admission Data Admit Date/Time: 07/17/24 13:23 Attending Provider: Hussein Warren Admit Provider: Sotero Porter Primary Care Provider: PCP,NO Other Providers: Mookie Shelby; Sotero Porter Hospital Stay Data Consultations 07/17/24 13:02 ED Decision to Admit Stat 07/17/24 15:06 Consult General Surgery Routine Diagnostic Imagining Performed 07/17/24 10:59 CT abd pelvis IV con only Stat Pending Results Patient Have Any Pending Studies at Discharge: No Discharge Instructions Given to Patient (Per Discharging Provider) Take ozkg-hxc-wzmtaew Colace 100 mg twice daily for a stool softener. Follow-up with primary care provider and oncology as soon as possible Total Time Total Time Spent Total Time Spent (In Minutes): 45 minutes Coding Level of Care Code 98134 INP/OBS DISCH >30 MIN Diagnoses SBO (small bowel obstruction) K56.609 Adenocarcinoma of rectosigmoid junction C19 Leukocytosis D72.829
[2024-07-20 12:49] VITALS: PULSE 77
--- NOTE | 2024-07-20 12:58 | Surgery Progress Note ---
<Statement entered by Heena Esteban DO - 07/21/24 08:22> I have seen and examined this patient with the surgical PA and I agree with this plan Date of Service July 20, 2024 Assessment & Plan (1) SBO (small bowel obstruction): Plan: Pt with history of LAR in 2022 for rectal ca and s/p ileostomy reversal in 2023 here w/ SBO pt reports feeling better than admission. no n/v. tolerating fulls he has return of bowel function. still having some pain as bowels resuming function, but tolerable recommended pt continue on a full liquid diet over the next couple of days then slowly transition to a low fiber diet prior to admission pt reports eating lots of fruits and salads. he has been given education on low fiber diet and he agrees to follow this for time being He has f/u with his colorectal surgeon in 2 weeks and she can advise on any further diet modifications at that point if indicated we are okay w/ pt discharging to home. understands return precautions & diet recommendations Admission and Anticipated Discharge Date Admission Date: July 17, 2024 Subjective Patient feeling better than admission. No nausea/vomiting. Tolerating full liquids. Is passing gas and stool. Reports some abdominal discomfort as he feels stool is passing through. Physical Exam Physical Exam: awake/alert, no distress Gastrointestinal (Abdomen): Percussion/Palpation: abdomen soft Results & Data Vital Signs (Past 12 Hours) Vital Signs Temp Pulse Pulse Pulse Resp BP Pulse Ox 07/20/24 12:48 98.4 F 77 65 70 16 132/83 95 07/20/24 07:31 98.4 F 65 16 132/83 95 O2 Del Method 07/20/24 12:48 07/20/24 07:31 Room Air PG Care Time/CCT Total # of Minutes Spent Total Time Spent with Patient: Total time spent is greater than 50% in coordination of care (as documented) at patient's floor/unit and/or counseling patient: Coding Level of Care Code 61275 SUB INP/OBS CARE 06/27MIN Diagnoses SBO (small bowel obstruction) K56.609
== END 2024-07-20 13:43 | disposition home or self-care (01) | DRG 389 ==
LOC: ED 09:37 → EDINP 13:23 → SUATTDRO 13:23 → 3E 15:06

== ENCOUNTER 2025-01-28 03:08 | Inpatient (IN) ==
--- NOTE | 2025-01-28 03:38 | Emergency Department Note ---
Impression & Plan Small bowel obstruction admit to the [facility] ED Provider Note NAME: CRISTHIAN MEREDITH AGE: 44 SEX: Male INFORMANT: Patient ED PROVIDER(S): Lila Fernandez DO CHIEF COMPLAINT: Abdominal pain and nausea PLAN: Disposition: admit to the [facility] MEDICAL DECISION MAKING: This is a 44-year-old male patient with a history of colon cancer status postresection who presents to the emergency department believing he is suffering an acute bowel obstruction. He has had them before. Laboratory studies reveal no leukocytosis or anemia. Glucose was 132. Renal function was normal. Patient was medicated with IV Dilaudid and Zofran which has given him good relief of his pain and nausea. Obstruction series shows some dilated loops of small bowel but no air-fluid levels or significant evidence of bowel obstruction. The patient went for CT scan of the abdomen/pelvis which confirmed a small bowel obstruction. Patient had received IV Zofran and IV Dilaudid for pain and nausea. He had no recurrence of his pain and no vomiting. I discussed the case with the [facility] and they will evaluate for further inpatient care. Care/management discussed with: manager port [facility] Triage Nursing notes: reviewed and agree With them. Vital Signs: reviewed and unremarkable Chronic Medical/Social Conditions affecting care: colon cancer-status postchemotherapy and radiation with previous bowel obstructions Prior/ Outside/ External records reviewed: I reviewed previous inpatient records from visits for bowel obstruction Differential Diagnosis: recurrent bowel obstruction, colitis, volvulus, diverticulitis Diagnostics, independently interpreted by me: Cardiac Monitoring: normal sinus rhythm at a rate of 82 Imaging studies: obstruction series: Small dilated loops of bowel but no air- fluid levels or free air. CT scan of the abdomen/pelvis: As per Imbro HPI: 44 year old Male arrives for evaluation of Abdominal pain. patient developed midline abdominal pain around 7 PM this evening with some associated nausea but no vomiting. The pain seems to come in waves. The pain is reminiscent of previous bowel obstructions. By history patient has had resection from colon cancer-status post chemotherapy and radiation. He had a colonoscopy in CT PET scan 2 weeks ago at [facility] which were negative.. PAST MEDICAL HISTORY: See Below, PAST SURGICAL HISTORY: See Below, SOCIAL HISTORY: See Below, HOME MEDICATIONS: See list ALLERGIES: see list VITALS: See Below PHYSICAL EXAMINATION: HEENT: Head - normocephalic and atraumatic. Pupils are equal, round, and reactive to light. Extraocular eye muscles are intact, and sclera are anicteric. Nose - moist nasal mucosa without discharge. Mouth - moist buccal mucosa. Oropharynx is nonerythematous and there is no tonsillar exudate or edema noted. Neck: Supple; no JVD, nuchal rigidity, cervical lymphadenopathy, or auscultated bruits. Heart: Regular rate and rhythm. There is a normal S1 and S2 with no murmurs, clicks, or gallops appreciated. Lungs: Clear to auscultation bilaterally with no wheezes, rales, or rhonchi. Abdomen: Soft, Moderate periumbilical tenderness with palpation. There were hypoactive bowel sounds. There are no palpable pulsatile masses or hepatosplenomegaly. There is no guarding, rigidity, or rebound noted. Extremities: No evidence of cyanosis, clubbing, or edema. There are easily palpable peripheral pulses. Skin: warm and dry with good turgor and no rashes. Emergency department treatment: IV normal saline, IV Dilaudid, IV Zofran, IV normal saline drip, IV Dilaudid emergency department course: The patient was evaluated in room A-12. A complete history and physical was performed. IV lock was initiated and labs are drawn as above. Patient was medicated with IV morphine and IV Zofran for the pain and nausea. An obstruction series was performed. patient over CT scan of the abdomen/pelvis. Upon returning from radiology, he had persistent pain and was given another dose of IV Dilaudid. Patient will be kept n.p.o. and placed on normal saline drip. Past Med/Surg History Problem List (Updated 01/29/25 @ 13:29 by Lila Fernandez DO) Small bowel obstruction (Acute) History of resection of large bowel Leukocytosis SBO (small bowel obstruction) (Acute) Encounter for pre-operative examination BRBPR (bright red blood per rectum) Rectal cancer (Chronic) Medical History Adenocarcinoma of rectosigmoid junction Rectal cancer dx'd 08/2022. oral chemo + radiation. Skin cancer, basal cell History of COVID-19 2020 -- moderate to severe flu like symptoms - no hospitalization Psoriasis Surgical History H/O colectomy Port-A-Cath in place (10/24/22) Insertion Access Port with Fluoroscopy(Right) - Nemesio Dinh DO, FACS Hx of colonoscopy History of tooth extraction Family History Mother No problems noted. Father Throat cancer Family/Other No history of cancer Pt has 5 1/2 brothers - no cancer Pt has 2 1/2 sisters and 1 sister - no cancer Son No problems noted. Daughter No problems noted. Daughter No problems noted. Other No family history of adverse response to anesthesia Denies family history of Crohn's disease Colorectal cancer Ulcerative colitis Social History Smoking Status: Former smoker Tobacco Type: Cigarettes Age Started Using Tobacco: 19; Age Quit Using Tobacco: 34; Cigarettes Per Day: 1/2 PPD when smoked; Second Hand Exposure: No; Do You Dip or Chew Tobacco: No; Hx Alcohol Use: No Hx Substance Use: Yes Non-Prescribed Medications: Crack / Cocaine Last Used Substance: Days (ago) Last Used Substance Other:: marijuana gummies a week ago Substance Use Type Other:: MEDICAL MARIJUANA GUMMIES Preferred Language: Japanese Communication Ability: Effective Visual Impairment: No Limitations Hearing Ability: Normal Corporate Treasurer Required: No Beliefs That Will Affect Care: None marital status: Current Living Situation: Spouse and Family Current Living Situation Comment: home with and 3 kids current occupational 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 How many Children do You have: 3 Feels Safe at Home: Yes Diet: regular caffeine: Yes (3-5 cups/day) during the past year weight has: remained stable Assistive Devices: None Allergies Allergies Allergy/AdvReac Type Severity Reaction Status Date / Time neomycin Allergy Unknown unsure - Verified 12/16/24 15:28 as a child Home Meds Home Medications Medication Instructions Recorded Confirmed triamcinolone acetonide 0.1 % 1 applic topical DAILY PRN ud 08/21/22 01/28/25 topical cream clobetasol 0.05 % topical cream 1 applic topical DAILY PRN Other 01/30/23 01/28/25 acetaminophen 500 mg tablet 500 mg PO Q6H PRN Pain 04/21/24 01/28/25 clobetasol 0.05 % topical ointment 1 applic topical DAILY PRN Other 04/21/24 01/28/25 cyclobenzaprine 10 mg tablet 10 mg PO TID PRN Muscle Spasms 04/21/24 01/28/25 oxycodone 5 mg tablet 5 mg PO Q4H PRN Pain 11/04/24 01/28/25 Results & Data (ED) Vital Signs Vital Signs - 24 hr 01/28/25 03:16 01/28/25 04:32 Temperature 37 C Temperature Source Temporal Artery Scan Pulse Rate 82 80 Respiratory Rate 16 Respiratory Effort / Characteristics Non-Labored Respiratory Depth Normal Blood Pressure 120/69 Blood Pressure Mean 86 Pulse Oximetry 97 Oxygen Delivery Method Room Air Sepsis Recent Fever Within 48 Hours No Sepsis New/Unexplained Change in Mental Status No Sepsis Action Taken by Nursing No Action Required Laboratory Data 01/28/25 03:26 01/29/25 06:42 Lab Results 01/28/25 01/28/25 Range/Units 03:26 03:50 WBC 5.57 (4.8-10.8) K/ul RBC 4.62 L (4.70-6.10) M/uL Hgb 15.1 (14.0-18.0) g/dl Hct 44.4 (42.0-52.0) % MCV 96.1 (80.0-100.0) fL MCH 32.7 (25.0-34.0) pg MCHC 34.0 (32.0-36.0) g/dL RDW Std Deviation 42.1 (36.4-46.3) fL RDW Coeff of Florencia 12.0 (11.5-14.5) % Plt Count 136 (130-400) K/uL MPV 10.2 (9.4-12.4) fL Immature Gran % (Auto) 0.2 % Neut % (Auto) 84.7 % Lymph % (Auto) 4.7 % [place] % (Auto) 9.5 % Eos % (Auto) 0.5 % Baso % (Auto) 0.4 % Neut # (Auto) 4.72 (1.40-6.50) K/uL Lymph # (Auto) 0.26 L (1.20-3.40) K/uL [place] # (Auto) 0.53 (0.11-0.59) K/uL Eos # (Auto) 0.03 (0.00-0.50) K/uL Baso # (Auto) 0.02 (0.00-0.20) K/uL Immature Gran # (Auto) 0.01 (0.01-0.20) K/uL Sodium 138 (136-145) mmol/L Potassium 4.3 (3.5-5.1) mmol/L Chloride 104 (98-107) mmol/L Carbon Dioxide 26 (21-32) mmol/L Anion Gap 8 (3-11) BUN 13 (6-23) mg/dl Creatinine 0.99 (0.6-1.4) mg/dl Est Cr Clr Drug Dosing 94.0 ml/min eGFR 97.54 BUN/Creatinine Ratio 13.1 (10-20) Glucose 132 H (70-99(Fasting)) mg/dl Calcium 9.8 (8.6-10.3) mg/dl Total Bilirubin 0.4 (0.2-1.0) mg/dl AST 19 (13-39) U/L ALT 14 (7-52) U/L Alkaline Phosphatase 48 (34-104) U/L Total Protein 7.1 (6.0-8.3) gm/dl Albumin 4.4 (3.4-5.0) gm/dl Globulin 2.7 (2.5-4.0) gm/dl Albumin/Globulin Ratio 1.6 (0.9-2) Lipase 10 L (11-82) U/L Urine Color Yellow Urine Appearance Clear (Clear) Urine pH 5.5 (4.5-7.5) Ur Specific [place] 1.024 (1.000-1.030) Urine Protein Negative (Negative) Urine Glucose (UA) Negative (Negative) Urine Ketones Trace H (Negative) Urine Blood Negative (Negative) Urine Nitrite Negative (Negative) Urine Bilirubin Negative (Negative) Urine Urobilinogen Negative (Negative) Ur Leukocyte Esterase Negative (Negative) Urine Comment Administered Medications Hydromorphone HCl (Hydromorphone Inj 0.5 Mg/0.5 Ml Syr) 1 mg IV Q4H PRN PRN Reason: Pain Stop: 02/11/25 09:01 Last Admin: 01/29/25 12:17 Dose: 1 mg Documented By: Admin: 01/29/25 08:20 Dose: 1 mg Documented By: Admin: 01/29/25 02:01 Dose: 1 mg Documented By: Admin: 01/28/25 22:01 Dose: 1 mg Documented By: SELVIN Parenteral Electrolytes (Plasma-Lyte A Ph 7.4) 1,000 mls @ 80 mls/hr IV .[id number] HECTOR Stop: 01/31/25 13:59 Last Admin: 01/29/25 02:01 Dose: 80 mls/hr Documented By: Infusion: 01/29/25 02:01 Dose: Infused Documented By: Admin: 01/28/25 13:56 Dose: 80 mls/hr Documented By: TARAN Ketorolac Tromethamine (Ketorolac 30 Mg/Ml Vial) 30 mg IV Q8H PRN PRN Reason: Pain Stop: 02/02/25 08:58 Last Admin: 01/29/25 04:26 Dose: 30 mg Documented By: Admin: 01/28/25 18:24 Dose: 30 mg Documented By: Admin: 01/28/25 10:44 Dose: 30 mg Documented By: FERNANDO Discontinued Medications Hydromorphone HCl (Hydromorphone Inj 1 Mg/Ml Syringe) 1 mg IV NOW STA Stop: 01/28/25 03:34 Last Admin: 01/28/25 03:59 Dose: 1 mg Documented By: THEODORE Hydromorphone HCl (Hydromorphone Inj 0.5 Mg/0.5 Ml Syr) 0.5 mg IV NOW STA Stop: 01/28/25 06:43 Last Admin: 01/28/25 07:12 Dose: 0.5 mg Documented By: vin Hydromorphone HCl (Hydromorphone Inj 0.5 Mg/0.5 Ml Syr) 0.5 mg IV Q4H PRN PRN Reason: Pain Stop: 02/11/25 09:01 Last Admin: 01/28/25 15:07 Dose: 0.5 mg Documented By: Admin: 01/28/25 09:24 Dose: 0.5 mg Documented By: FERNANDO Hydromorphone HCl (Hydromorphone Inj 1 Mg/Ml Syringe) 1 mg IV NOW STA Stop: 01/28/25 16:31 Last Admin: 01/28/25 16:33 Dose: 1 mg Documented By: TARAN Sodium Chloride (Nss) 500 mls @ 999 mls/hr IV .Q31M ONE Stop: 01/28/25 04:03 Last Infusion: 01/28/25 07:14 Dose: Infused Documented By: [email or web address] Admin: 01/28/25 04:03 Dose: 999 mls/hr Documented By: THEODORE Sodium Chloride (Nss) 500 mls @ 125 mls/hr IV .Q4H HECTOR Stop: 01/28/25 10:44 Last Infusion: 01/28/25 10:49 Dose: Infused Documented By: Admin: 01/28/25 06:49 Dose: 125 mls/hr Documented By: THEODORE Ioversol (Optiray 320 100ml) 100 ml IV ONCE ONE Stop: 01/28/25 05:19 Last Admin: 01/28/25 05:18 Dose: 93 ml Documented By: ZENON Ondansetron HCl (Ondansetron Inj 2 Mg/Ml 2 Ml Vial) 4 mg IV NOW STA Stop: 01/28/25 03:34 Last Admin: 01/28/25 04:01 Dose: 4 mg Documented By: MED Discharge Plan Visit Data Chief Complaint: Constipation Stated Complaint: BOWEL OBSTUCTION ED Provider: Lial Fernandez Discharge Problem: Small bowel obstruction Patient Disposition: Admitted As Inpatient Condition: Serious Discharge Instructions Interventions: ED Discharge Assessment Last Done: 01/28/25 12:35
[2025-01-28] MEDS: HYDROmorphone INJ 1 MG/ML SYRINGE IV STA ×2 (03:59→16:33)
[2025-01-28] MEDS: ONDANSETRON INJ 2 MG/ML 2 ML VIAL IV STA (04:01)
[2025-01-28] MEDS: SODIUM CHLORIDE 0.9% 500 ML IV ONE (04:03)
[2025-01-28 04:05] LABS: Hematocrit (blood only) 44.4 % (42.0-52.0); Hemoglobin 15.1 g/dl (14.0-18.0); Immature Granulocytes # (auto) 0.01 K/uL (0.01-0.20); Immature Granulocytes % (auto) 0.2 %; Mean Corpuscular Hemoglobin 32.7 pg (25.0-34.0); Mean Corpuscular Volume 96.1 fL (80.0-100.0); Platelet Count 136 K/uL (130-400); RDW Standard Deviation 42.1 fL (36.4-46.3); Red Blood Count 4.62 M/uL (4.70-6.10); White Blood Count 5.57 K/ul (4.8-10.8)
[2025-01-28 04:06] LABS: Appearance Urine Clear (Clear); Glucose Urine UA Negative (Negative)
[2025-01-28 04:31] LABS: Alanine Aminotransferase 14.0 U/L (7-52); Albumin Globulin Ratio 1.6 (0.9-2); Alkaline Phosphatase 48.0 U/L (34-104); Anion Gap 8.0 (3-11); Bilirubin,Total 0.4 mg/dl (0.2-1.0); Blood Urea Nitrogen 13.0 mg/dl (6-23); Calcium 9.8 mg/dl (8.6-10.3); Carbon Dioxide 26.0 mmol/L (21-32); Chloride 104.0 mmol/L (98-107); Creatinine Clr Calc Pharmacy 94.0 ml/min; Globulin 2.7 gm/dl (2.5-4.0); Glucose 132.0 mg/dl (70-99(Fasting)); Lipase 10.0 U/L (11-82); Potassium 4.3 mmol/L (3.5-5.1); Sodium 138.0 mmol/L (136-145); Total Protein 7.1 gm/dl (6.0-8.3)
--- NOTE | 2025-01-28 04:55 | XRay Report ---
EXAM: XR abdomen 2V w PA chest CLINICAL HISTORY: Eval for sbo. TECHNIQUE: X-ray images of the chest were obtained in posteroanterior (PA) and abdomen in supine projections. COMPARISON: 07/18/2024. FINDINGS: Right side [id number] is seen in place. Pulmonary Parenchyma: Lungs are clear bilaterally. No evidence of consolidation, collapse, or focal opacities. A tiny right basal nodular density is seen. No evidence of pleural effusion or pleural thickening. Heart and Mediastinum: Heart size and shape are normal. right-sided venous line in atrial level. No mediastinal widening or masses. No hilar or mediastinal lymphadenopathy. Bony Thorax: Bony thorax appears intact without fractures or deformities. Gas Pattern: Still seen mild bowel loops dilatation showing regression of the air fluid levels and more evident gaseous distention. Soft Tissues: Soft tissues of the abdomen appear normal without evidence of masses or calcifications. Liver, spleen, and kidneys are of normal size and position. Stable small radio-opaque density in left lumbar region likely a renal calculus. IMPRESSION: 1. Right side [id number] is seen in place 2. No acute cardiopulmonary abnormalities identified. 3. Still seen mild bowel loops dilatation showing regression of the air fluid levels and more evident gaseous distention. Suggests clinical correlation and follow-up. Electronically signed by Isidro Peter 01-28-2025 04:55 AM
[2025-01-28] MEDS: OPTIRAY 320 100ml IV ONE (05:18)
--- NOTE | 2025-01-28 06:24 | CT Scan Report ---
EXAM: CT abd pelvis IV con only CLINICAL HISTORY: Eval for sbo TECHNIQUE: Contrast-enhanced CT of the abdomen and pelvis was performed, with the following protocol: axial images with, and reconstructed coronal and sagittal images. Intravenous contrast was administered. One of the following dose reduction techniques was utilized for this exam: Automated exposure control, adjustment of the mA and/or kV according to patient size, and use of iterative reconstruction. COMPARISON: 09/25/2024 CT abdomen and pelvis. FINDINGS: Abdomen: Liver: Normal in size, shape, and density. No focal lesions, cysts, or masses were identified. Hepatic vasculature and biliary ducts are unremarkable. Gallbladder and Biliary System: The gallbladder is normal in size and shape. No wall thickening, pericholecystic fluid, or gallstones were identified. The common bile duct is normal in caliber without dilation. Pancreas: Pancreatic head, body, and tail are visualized and appear normal in size and density. No pancreatic masses or calcifications were noted. The pancreatic duct is not dilated. Spleen: Normal in size, shape, and density. No splenic lesions or masses were identified. Appendix: No evidence of appendiceal abscess or perforation. Kidneys and Adrenal Glands: Both kidneys are normal in size, shape, and position. Cortical thickness is within normal limits. Left renal lower calyceal stone measuring about 4 mm is seen No other renal calculi or hydronephrosis. Adrenal glands are unremarkable with no evidence of masses or hyperplasia. Pelvis: Urinary Bladder: Normal in contour and wall thickness. No intraluminal lesions identified. Prostate: Normal in size and contour. No focal lesions or masses identified. Seminal Vesicles: Normal in size and appearance. No abnormalities noted. Rectum and Sigmoid Colon: Normal wall thickness and no evidence of mass. Peritoneal and Retroperitoneal Structures: No lymphadenopathy was noted. Bowel: Rectosigmoid anastomotic surgical sutures are seen (stable) Newly seen dilated distal small and large bowel loops is seen, with a small bowel feces sign noted.. No transition point seen. Newly seen pelvic small bowel surgical sutures Mild fluid is seen surrounding the bowel loops Bones and Soft Tissues: Pelvic bones and soft tissues are unremarkable. No fractures or abnormal masses were identified. IMPRESSION: 1. Newly seen dilated distal small and large bowel loops is seen, with a small bowel feces sign noted, denoting small bowel obstruction.. No definite transition point/obstructing lesions were seen 2. Mild fluid is seen surrounding the bowel loops, 3. Bowel obstruction can be related to adhesive obstruction or anastomotic stricture; the presence of fluid could be due to edema. Clinical correlation is recommended. 4. Left renal non-obstructing stone (stable) Electronically signed by Isidro Peter 01-28-2025 06:24 AM
[2025-01-28] MEDS: SODIUM CHLORIDE 0.9% 500 ML IV SCH (06:49)
[2025-01-28] MEDS: HYDROmorphone INJ 0.5 MG/0.5 ML SYR IV STA (07:12)
--- NOTE | 2025-01-28 07:54 | History & Physical Report ---
Date of Service January 28, 2025 Assessment & Plan (1) SBO (small bowel obstruction): (2) History of resection of large bowel: Plan Ish Walter is a 44yo male with PMHx invasive rectosigmoid adenocarcinoma s/p bowel resection, s/p chemo and radiation, and prior SBO, came to the ER for severe abdominal pain and concern for re-SBO, admitted for SBO. Due to lack of vomiting, and since he is passing gas, deferring NG tube at this time. Requires admission for continued monitoring, bowel rest with IV fluids, and slow transition back to diet once abdominal pain has resolved. #Small Bowel Obstruction #history of bowel resection CT abd/pelvis 01/28/25 showing newly dilated distal small/large bowel loops, small bowel feces sign noted, however no definite transition point or obstructing lesions Reportedly this is the third bout of SBO he's had, very likely a combination of intraabominal adhesions 2/2 bowel resection and recent dietary addition of copious dried fruit. No NG tube needed at this time due to passing gas and lack of vomiting Zofran for nausea - continue bowel rest; start clear liquid diet once abdominal pain has resolved without need for pain control Continue IV fluids while NPO - GI and Gen surg consulted, appreciate recs: GI recommending "low residue" diet, avoiding triggering foods which we now know include dried fruit - continue pain regimen: dilaudid and toradol IV as needed while NPO #History of rectosigmoid adenocarcinoma s/p bowel resection and chemo/radiation; PET CT in 12/25/24: increased tracer uptake a few centimeters upstream to the anastomotic suture with additional nonspecific increased tracer uptake within the ascending colon and stomach -> attention on follow-up recommended; otherwise no lymphadenopathy or definite evidence of metastatic disease within the chest, abdomen or pelvis. - bowel rest as above for current SBO VTE ppx: SCDs, can remove once no longer in pain and able to walk around often Dispo: med/surg History of Present Illness Chief Complaint: abdominal pain Primary Care Provider: NO PCP Ish Walter is a 44yo male with PMHx invasive colon adenocarcinoma s/p bowel resection, s/p chemo and radiation currently cancer-free, and prior SBO, came to the ER for severe abdominal pain and concern for re-SBO, admitted for SBO. HPI: endorses eating a lot of various dried fruit over the past couple of days, started to have severe abdominal pain around 19:00 last night 01/27/25. Notes eating dried fruit is very rare for him, and as this is the one recent change in daily routine/diet he feels all the dried fruit led to his current SBO. Notes mild nausea but no vomiting, and endorses passing gas. States this is his 3rd time at the hospital for SBO, notes the last time was in Jul 2024 and was worse since he was having nausea and vomiting. No additional needs at home. Allergies Allergy/AdvReac Type Severity Reaction Status Date / Time neomycin Allergy Unknown unsure - Verified 12/16/24 15:28 as a child Home Medications Medication Instructions Recorded Confirmed Type triamcinolone acetonide 0.1 % 1 applic topical DAILY PRN ud 08/21/22 01/28/25 History topical cream clobetasol 0.05 % topical cream 1 applic topical DAILY PRN Other 01/30/23 01/28/25 History acetaminophen 500 mg tablet 500 mg PO Q6H PRN Pain 04/21/24 01/28/25 History clobetasol 0.05 % topical ointment 1 applic topical DAILY PRN Other 04/21/24 01/28/25 History cyclobenzaprine 10 mg tablet 10 mg PO TID PRN Muscle Spasms 04/21/24 01/28/25 History oxycodone 5 mg tablet 5 mg PO Q4H PRN Pain 11/04/24 01/28/25 History Past Med/Surg History Problem List History of resection of large bowel Leukocytosis SBO (small bowel obstruction) (Acute) Encounter for pre-operative examination BRBPR (bright red blood per rectum) Rectal cancer (Chronic) Medical History Adenocarcinoma of rectosigmoid junction Rectal cancer dx'd 08/2022. oral chemo + radiation. Skin cancer, basal cell History of COVID-2020 -- moderate to severe flu like symptoms - no hospitalization Psoriasis Surgical History H/O colectomy Port-A-Cath in place (10/24/22) Insertion Access Port with Fluoroscopy(Right) - Nemesio Dinh DO, FACS Hx of colonoscopy History of tooth extraction Family History Mother No problems noted. Father Throat cancer Family/Other No history of cancer Pt has 5 1/2 brothers - no cancer Pt has 2 1/2 sisters and 1 sister - no cancer Son No problems noted. Daughter No problems noted. Daughter No problems noted. Other No family history of adverse response to anesthesia Denies family history of Crohn's disease Colorectal cancer Ulcerative colitis Social History Smoking Status: Former smoker Tobacco Type: Cigarettes Age Started Using Tobacco: 19; Age Quit Using Tobacco: 34; Cigarettes Per Day: 1/2 PPD when smoked; Second Hand Exposure: No; Do You Dip or Chew Tobacco: No; Hx Alcohol Use: No Hx Substance Use: Yes Non-Prescribed Medications: Crack / Cocaine Last Used Substance: Days (ago) Last Used Substance Other:: marijuana gummies a week ago Substance Use Type Other:: MEDICAL MARIJUANA GUMMIES Preferred Language: Singaporean Communication Ability: Effective Visual Impairment: No Limitations Hearing Ability: Normal Casino Investigator Required: No Beliefs That Will Affect Care: None marital status: Current Living Situation: Spouse and Family Current Living Situation Comment: home with and 3 kids current occupational 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 How many Children do You have: 3 Feels Safe at Home: Yes Diet: regular caffeine: Yes (3-5 cups/day) during the past year weight has: remained stable Assistive Devices: None Physical Exam Physical Exam: Constitutional: A&Ox3, appearing in no moderate distress HEENT: EOM intact, anicteric sclerae; moist oral mucus membranes CV: RRR, +s1/s2, no m/r/g, radial pulses 2+ b/l Respiratory: clear to auscultation b/l, no w/r/R GI/Abd: normo-hyperactive BS, tenderness to palpation of RUQ, epigastric, and LLQ; stoma scar present in superomedial RLQ - some guarding observed, no distention, no hepatosplenomegaly MSK: 5/5 strength in b/l UE and LE, no gross deformities Neuro: no facial droop, no focal deficits, wiggles toes Results & Data Results & Data Vital Signs (Past 12 Hours) Vital Signs Temp Pulse Pulse Resp BP BP Pulse Ox 01/28/25 06:07 70 12 97 01/28/25 06:06 67 16 117/67 96 01/28/25 04:32 80 01/28/25 03:16 37 C 82 16 120/69 97 O2 Del Method 01/28/25 06:07 Room Air 01/28/25 06:06 Room Air 01/28/25 04:32 01/28/25 03:16 Room Air Diagnostic Findings CT Abd/pelvis 01/28/25: IMPRESSION: 1. Newly seen dilated distal small and large bowel loops is seen, with a small bowel feces sign noted, denoting small bowel obstruction.. No definite transition point/obstructing lesions were seen 2. Mild fluid is seen surrounding the bowel loops, 3. Bowel obstruction can be related to adhesive obstruction or anastomotic stricture; the presence of fluid could be due to edema. Clinical correlation is recommended. 4. Left renal non-obstructing stone (stable) Supervising Physician Co-Signing Physician Notes I personally examined the patient and verified all mann points of history and exam, discussed case, and agree with decision making with Dr Soto Feeling somewhat better by the time I see himpain meds help a lot but whenever they wear off he is in a lot of pain again. Overall feeling better than whenever he first came in. Vitals noted, in general he is awake and alert pleasant no distress. HEENT normocephalic atraumatic mucous membranes moist. Breathing unlabored no accessory muscle use good effort. Skin without rashes pallor or icterus. Abdomen soft nondistended mild diffuse tenderness no guarding rebound or rigidity. recurrent small bowel obstructionalmost certainly adhesional. Supportive care, pain control/IV fluids/time. DVT prophylaxis with ambulation otherwise as above Resident Activity Tracking Resident Involvement: Resident Care Provided Care Provided: Adult Hospital Medicine
[2025-01-28] MEDS: HYDROmorphone INJ 0.5 MG/0.5 ML SYR IV PRN ×2 (09:24→22:01)
[2025-01-28] MEDS: KETOROLAC 30 MG/ML VIAL IV PRN (10:44)
[2025-01-28] MEDS ORDERED: ONDANSETRON INJ 2 MG/ML 2 ML VIAL IV PRN (10:46)
[2025-01-28] MEDS ORDERED: ACETAMINOPHEN 325 MG TAB PO PRN (10:46)
[2025-01-28] MEDS ORDERED: TRIAMCINOLONE ACET 0.1% CR 15 GM TUBE TOP PRN (10:46)
[2025-01-28] MEDS ORDERED: CLOBETASOL PROPIONATE 0.05% CREAM 15 GM TUBE TOP PRN (10:46)
[2025-01-28] MEDS ORDERED: CYCLOBENZAPRINE HCL 10 MG TAB PO PRN (10:46)
[2025-01-28] MEDS ORDERED: MELATONIN 3 MG TAB PO PRN (10:46)
--- NOTE | 2025-01-28 11:09 | Surgery Consultation ---
Date of Consultation January 28, 2025 Assessment & Plan (1) SBO (small bowel obstruction): His CT images and results were personally viewed and interpreted by myself He does have some dilated loops of small and large intestine that do seem to be somewhat chronic in nature for him Will treat him conservatively, keep him n.p.o. today No need for an NG tube at this point No plans for any surgical exploration at this time Surgery will follow History of Present Illness Reason for Consultation: Small bowel obstruction Attending Physician: Dwight Bautista DO History of Present Illness This is a 44-year-old male who was admitted to the hospital earlier this morning with a small bowel obstruction. He has a history of a low anterior resection in late 2022 at [facility] with ileostomy and then later reversal a few months later. These are his only abdominal surgeries. He came in with severe lower abdominal pain and some bloating. Denies any nausea or vomiting. He had had a similar episode back in July of this year that was treated conservatively. He finished chemotherapy in November. He states he had a bowel mov ement yesterday at 6:30 PM. He is still passing some flatus. Allergies Allergy/AdvReac Type Severity Reaction Status Date / Time neomycin Allergy Unknown unsure - Verified 12/16/24 15:28 as a child Home Medications Medication Instructions Recorded Confirmed Type triamcinolone acetonide 0.1 % 1 applic topical DAILY PRN ud 08/21/22 01/28/25 History topical cream clobetasol 0.05 % topical cream 1 applic topical DAILY PRN Other 01/30/23 01/28/25 History acetaminophen 500 mg tablet 500 mg PO Q6H PRN Pain 04/21/24 01/28/25 History clobetasol 0.05 % topical ointment 1 applic topical DAILY PRN Other 04/21/24 01/28/25 History cyclobenzaprine 10 mg tablet 10 mg PO TID PRN Muscle Spasms 04/21/24 01/28/25 History oxycodone 5 mg tablet 5 mg PO Q4H PRN Pain 11/04/24 01/28/25 History Patient History Medical History Adenocarcinoma of rectosigmoid junction Rectal cancer dx'd 08/2022. oral chemo + radiation. Skin cancer, basal cell History of COVID-2020 -- moderate to severe flu like symptoms - no hospitalization Psoriasis Surgical History H/O colectomy Port-A-Cath in place (10/24/22) Insertion Access Port with Fluoroscopy(Right) - Nemesio Dinh DO, FACS Hx of colonoscopy History of tooth extraction Family History Mother No problems noted. Father Throat cancer Family/Other No history of cancer Pt has 5 1/2 brothers - no cancer Pt has 2 1/2 sisters and 1 sister - no cancer Son No problems noted. Daughter No problems noted. Daughter No problems noted. Other No family history of adverse response to anesthesia Denies family history of Crohn's disease Colorectal cancer Ulcerative colitis Social History Smoking Status: Never smoker Tobacco Type: Cigarettes Age Started Using Tobacco: 19; Age Quit Using Tobacco: 34; Cigarettes Per Day: 1/2 PPD when smoked; Second Hand Exposure: No; Do You Dip or Chew Tobacco: No; Hx Alcohol Use: No Hx Substance Use: Yes Non-Prescribed Medications: Crack / Cocaine Last Used Substance: Days (ago) Substance Use Type Other:: MEDICAL MARIJUANA GUMMIES Preferred Language: Kazakh Communication Ability: Effective Visual Impairment: No Limitations Hearing Ability: Normal Washroom Cleaner Required: No Beliefs That Will Affect Care: None marital status: Current Living Situation: Spouse and Family current occupational 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 How many Children do You have: 3 Feels Safe at Home: Yes Diet: regular caffeine: Yes (3-5 cups/day) during the past year weight has: remained stable Assistive Devices: None Review of Systems Constitutional: no fever and no chills Eyes: no blind spots and no corrective lenses Ear, Nose, Mouth, Throat: no ear pain and no sore throat Respiratory: no cough and no dyspnea Cardiovascular: no chest pain and no dyspnea on exertion Gastrointestinal: + abdominal pain and + constipation; no nausea, no vomiting, no diarrhea/loose stools and no blood in stools Genitourinary: no dysuria or no urinary incontinence Musculoskeletal: no back pain and no neck pain Integumentary: no acne and no sores Neurologic: no gait abnormality and no unsteadiness Psychiatric: no behavioral changes and no depression Hematologic / Lymphatic: no easy bleeding and no easy bruising Physical Exam Constitutional: WD/WN, vitals as above Eyes: PERRL, conjunctivae normal, anicteric sclerae ENMT: external ear and nose normal, oropharynx normal Neck: trachea midline, no thyromegaly Respiratory: normal respiratory effort, lungs clear to auscultation Cardiovascular: RRR, no murmur, no edema Gastrointestinal (Abdomen): Inspection/Auscultation: abdomen normal to inspection; abdomen not distended Percussion/Palpation: + abdomen tender (Bilateral lower quadrants) and abdomen soft; no guarding and no hernia Musculoskeletal: no cyanosis or clubbing, extremities motor strength 5/5 Skin: no rashes, warm and dry Neurologic: PERRL, EOMI, accommodation nl, no face palsy, no dysarthria Psychiatric: A+Ox3, euthymic affect Results & Data Vital Signs (Past 12 Hours) Vital Signs Temp Pulse Pulse Resp BP BP Pulse Ox 01/28/25 11:00 36.6 C 78 20 115/76 98 01/28/25 08:08 68 01/28/25 06:07 70 12 97 01/28/25 06:06 67 16 117/67 96 01/28/25 04:32 80 01/28/25 03:16 37 C 82 16 120/69 97 O2 Del Method 01/28/25 11:00 Room Air 01/28/25 08:08 01/28/25 06:07 Room Air 01/28/25 06:06 Room Air 01/28/25 04:32 01/28/25 03:16 Room Air PG Care Time/CCT Total # of Minutes Spent Total Time Spent with Patient: Total time spent is greater than 50% in coordination of care (as documented) at patient's floor/unit and/or counseling patient: Coding Level of Care Code 56053 IN/OBS CONSULT LVL 5,80M Diagnoses SBO (small bowel obstruction) K56.609
[2025-01-28] MEDS: PLASMA-LYTE A 1,000 ML IV SCH (13:56)
--- NOTE | 2025-01-28 19:51 | Billing Data ---
Date of Service January 28, 2025 Coding Level of Care Code 66066 INT INP/OBS CARE
--- NOTE | 2025-01-29 07:11 | Hospitalist Progress Note ---
Date of Service January 29, 2025 Assessment & Plan (1) SBO (small bowel obstruction): (2) History of resection of large bowel: Plan Ish Walter is a 44yo male with PMHx invasive rectosigmoid adenocarcinoma s/p bowel resection, s/p chemo and radiation, and prior SBO, came to the ER for severe abdominal pain and concern for re-SBO, admitted for SBO. Due to lack of vomiting, and since he is passing gas, deferring NG tube. Requires admission for continued monitoring, bowel rest with IV fluids, and slow transition back to diet- ordered clears in case willing to attempt as he tolerated some coffee day prior. #Small Bowel Obstruction #history of bowel resection CT abd/pelvis 01/28/25 showing newly dilated distal small/large bowel loops, small bowel feces sign noted, however no definite transition point or obstructing lesions Reportedly this is the third bout of SBO he's had, very likely a combination of intraabominal adhesions 2/2 bowel resection and recent dietary addition of copious dried fruit. Still no NG tube needed due to passing gas and lack of vomiting Zofran for nausea - ordered clear liquid diet as pt expressed that he is hungry, in case interested in trying some easily digestible foods as he is motivated to go home, but continue mIVF - GI and Gen surg consulted, appreciate recs: GI recommending "low residue" diet, avoiding triggering foods which we now know include dried fruit; gen surg still recommending NPO today but since pt is hunger and motivated to go home, will offer clear liquids - continue pain regimen: dilaudid and toradol IV as needed while NPO #History of rectosigmoid adenocarcinoma s/p bowel resection and chemo/radiation; PET CT in 12/25/24: increased tracer uptake a few centimeters upstream to the anastomotic suture with additional nonspecific increased tracer uptake within the ascending colon and stomach -> attention on follow-up recommended; otherwise no lymphadenopathy or definite evidence of metastatic disease within the chest, abdomen or pelvis. - bowel rest as above for current SBO VTE ppx: ambulates Dispo: med/surg Admission and Anticipated Discharge Date Admission Date: January 28, 2025 Supervising Physician Co-Signing Physician Notes I personally examined the patient and verified all mann points of history and exam, discussed case, and agree with decision making with Dr Brittany Feeling a little bit better. Vitals noted, in general he is awake and alert pleasant no distress. HEENT normocephalic atraumatic mucous membranes moist. Breathing unlabored no accessory muscle use good effort. Skin without rashes pallor or icterus. Abdomen soft nondistended mild diffuse tenderness no guarding rebound or rigidity. recurrent small bowel obstructionalmost certainly adhesional. Supportive care, pain control/IV fluids/time. Trial of clear liquids gently. DVT prophylaxis with ambulation otherwise as above Subjective Feeling a bit better this morning, has been requesting his pain meds when they get to 5-6/10 and prevent it from getting much worse. Tolerated some coffee day prior. Has also been walking around the floor once his pain is controlled. Endorses continuing to pass gas, minimal nausea, no vomiting. Motivated to go home today as long as he tolerates oral intake. Physical Exam Physical Exam: Constitutional: A&Ox3, appearing in no moderate distress HEENT: EOM intact, anicteric sclerae; moist oral mucus membranes CV: RRR, +s1/s2, no m/r/g, radial pulses 2+ b/l Respiratory: clear to auscultation b/l, no w/r/R GI/Abd: normoactive BS, slight tenderness to palpation of LLQ, voluntary guarding of abdomen as a whole but no distention, no rebound tenderness; stoma repair scar present in superomedial RLQ MSK: 5/5 strength in b/l UE and LE, no gross deformities Neuro: no facial droop, no focal deficits, wiggles toes Results & Data Results & Data Vital Signs (Past 12 Hours) Vital Signs Temp Pulse Resp BP Pulse Ox O2 Del Method 01/28/25 22:11 36.8 C 66 16 117/80 94 Room Air Resident Activity Tracking Resident Involvement: Resident Care Provided Care Provided: Adult Hospital Medicine
[2025-01-29 07:15] LABS: Anion Gap 4.0 (3-11); Blood Urea Nitrogen 10.0 mg/dl (6-23); Calcium 8.8 mg/dl (8.6-10.3); Carbon Dioxide 28.0 mmol/L (21-32); Chloride 107.0 mmol/L (98-107); Creatinine Clr Calc Pharmacy 103.4 ml/min; Glucose 107.0 mg/dl (70-99(Fasting)); Potassium 4.3 mmol/L (3.5-5.1); Sodium 139.0 mmol/L (136-145)
--- NOTE | 2025-01-29 10:01 | Surgery Progress Note ---
Date of Service January 29, 2025 Assessment & Plan (1) SBO (small bowel obstruction): Plan: He is slightly improved, with no meaningful return of bowel function yet Will going to keep him n.p.o. again for today and check back later to see if we can trial clears later today Will again proceed with nonoperative management as this did resolve back in July without surgery Surgery will follow Admission and Anticipated Discharge Date Admission Date: January 28, 2025 Subjective Patient seen and examined. States his abdominal pain is improved. He is passing some flatus, no BM. Denies any nausea or vomiting. Review of Systems Constitutional: no fever and no chills Eyes: no blind spots and no corrective lenses Ear, Nose, Mouth, Throat: no ear pain and no sore throat Respiratory: no cough and no dyspnea Cardiovascular: no chest pain and no dyspnea on exertion Gastrointestinal: + abdominal pain and + constipation; no nausea, no vomiting, no diarrhea/loose stools and no blood in stools Genitourinary: no dysuria or no urinary incontinence Musculoskeletal: no back pain and no neck pain Integumentary: no acne and no sores Neurologic: no gait abnormality and no unsteadiness Psychiatric: no behavioral changes and no depression Hematologic / Lymphatic: no easy bleeding and no easy bruising Physical Exam Constitutional: WD/WN, vitals as above Eyes: PERRL, conjunctivae normal, anicteric sclerae ENMT: external ear and nose normal, oropharynx normal Neck: trachea midline, no thyromegaly Respiratory: normal respiratory effort, lungs clear to auscultation Cardiovascular: RRR, no murmur, no edema Gastrointestinal (Abdomen): Inspection/Auscultation: abdomen normal to inspection; abdomen not distended Percussion/Palpation: + abdomen tender (Bilateral lower quadrants) and abdomen soft; no guarding and no hernia Musculoskeletal: no cyanosis or clubbing, extremities motor strength 5/5 Skin: no rashes, warm and dry Neurologic: PERRL, EOMI, accommodation nl, no face palsy, no dysarthria Psychiatric: A+Ox3, euthymic affect Results & Data Vital Signs (Past 12 Hours) Vital Signs Temp Pulse Resp BP Pulse Ox O2 Del Method 01/29/25 07:55 36.5 C 71 20 100/60 96 Room Air 01/28/25 22:11 36.8 C 66 16 117/80 94 Room Air PG Care Time/CCT Total # of Minutes Spent Total Time Spent with Patient: Total time spent is greater than 50% in coordination of care (as documented) at patient's floor/unit and/or counseling patient: Coding Level of Care Code 00834 SUB INP/OBS CARE 06/27MIN Diagnoses SBO (small bowel obstruction) K56.609
--- NOTE | 2025-01-29 18:31 | Billing Data ---
Date of Service January 29, 2025 Coding Level of Care Code 67032 SUB INP/OBS CARE
--- NOTE | 2025-01-30 09:45 | Hospitalist Progress Note ---
Date of Service January 30, 2025 Assessment & Plan (1) SBO (small bowel obstruction): (2) History of resection of large bowel: Plan Ish Walter is a 44yo male with PMHx invasive rectosigmoid adenocarcinoma s/p bowel resection, s/p chemo and radiation, and prior SBO, came to the ER for severe abdominal pain and concern for re-SBO, admitted for SBO. Due to lack of vomiting, and since he is passing gas, deferring NG tube. Requires admission for continued monitoring, bowel rest with IV fluids, and slow transition back to diet- ordered clears in case willing to attempt as he tolerated some coffee day prior. #Small Bowel Obstruction #history of bowel resection CT abd/pelvis 01/28/25 showing newly dilated distal small/large bowel loops, small bowel feces sign noted, however no definite transition point or obstructing lesions Reportedly this is the third bout of SBO he's had, very likely a combination of intraabominal adhesions 2/2 bowel resection and recent dietary addition of copious dried fruit. Still no NG tube needed due to passing gas and lack of vomiting Zofran for nausea - ordered clear liquid diet as pt expressed that he is hungry, in case interested in trying some easily digestible foods as he is motivated to go home, but continue mIVF - GI and Gen surg consulted, appreciate recs: GI recommending "low residue" diet, avoiding triggering foods which we now know include dried fruit; gen surg still recommending NPO today but since pt is hunger and motivated to go home, will offer clear liquids - continue pain regimen: dilaudid and toradol IV as needed while NPO #History of rectosigmoid adenocarcinoma s/p bowel resection and chemo/radiation; PET CT in 12/25/24: increased tracer uptake a few centimeters upstream to the anastomotic suture with additional nonspecific increased tracer uptake within the ascending colon and stomach -> attention on follow-up recommended; otherwise no lymphadenopathy or definite evidence of metastatic disease within the chest, abdomen or pelvis. - bowel rest as above for current SBO VTE ppx: ambulates Dispo: med/surg Admission and Anticipated Discharge Date Admission Date: January 29, 2025 Subjective Feeling a bit better this morning, has been requesting his pain meds when they get to 5-6/10 and prevent it from getting much worse. Tolerated some coffee day prior. Has also been walking around the floor once his pain is controlled. Endorses continuing to pass gas, minimal nausea, no vomiting. Motivated to go home today as long as he tolerates oral intake. Results & Data Results & Data Vital Signs (Past 12 Hours) Vital Signs Temp Pulse Resp BP BP Pulse Ox O2 Del Method 01/30/25 07:20 36.5 C 54 L 20 107/64 97 Room Air 01/29/25 23:36 36.8 C 12 109/76 97 Room Air
--- NOTE | 2025-01-30 09:55 | Surgery Progress Note ---
Date of Service January 30, 2025 Assessment & Plan (1) Small bowel obstruction: Plan doing well. Positive flatus and bowel movements. Advance diet as tolerated. May be okay to discharge later today. Admission and Anticipated Discharge Date Admission Date: January 29, 2025 Subjective Doing well. Passing flatus. Had 2 bowel movements. No pain. Physical Exam Physical Exam: NAD, A&O x 3 NCAT, no scleral icterus Abdomen: Soft, nontender, nondistended Results & Data Vital Signs (Past 12 Hours) Vital Signs Temp Pulse Resp BP BP Pulse Ox O2 Del Method 01/30/25 07:20 36.5 C 54 L 20 107/64 97 Room Air 01/29/25 23:36 36.8 C 12 109/76 97 Room Air
[2025-01-30] MEDS ORDERED: HYDROmorphone INJ 1 MG/ML SYRINGE IV STA (14:58)
[2025-01-30 15:42] VITALS: BP 142/85; PULSE 64; RESP 16; TEMP 98.1; O2SAT 96
--- NOTE | 2025-01-30 15:42 | Discharge Summary ---
Date of Service January 30, 2025 Admission HPI Per Admitting Provider Ish Walter is a 44yo male with PMHx invasive colon adenocarcinoma s/p bowel resection, s/p chemo and radiation currently cancer-free, and prior SBO, came to the ER for severe abdominal pain and concern for re-SBO, admitted for SBO. HPI: endorses eating a lot of various dried fruit over the past couple of days, started to have severe abdominal pain around 19:00 last night 01/27/25. Notes eating dried fruit is very rare for him, and as this is the one recent change in daily routine/diet he feels all the dried fruit led to his current SBO. Notes mild nausea but no vomiting, and endorses passing gas. States this is his 3rd time at the hospital for SBO, notes the last time was in Jul 2024 and was worse since he was having nausea and vomiting. No additional needs at home. 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 Discharge Exam Constitutional well developed, cooperative and comfortable; no acute distress Respiratory normal respiratory effort; no respiratory distress Cardiovascular Rate/Rhythm: regular rate Gastrointestinal (Abdomen) Inspection/Auscultation: + abdominal surgical scar; abdomen not distended Percussion/Palpation: + abdomen tender and abdomen soft; abdomen not firm Psychiatric Orientation: alert and oriented x 3 Discharge Data Allergies Allergy/AdvReac Type Severity Reaction Status Date / Time neomycin Allergy Unknown unsure - Verified 12/16/24 15:28 as a child Consultations 01/28/25 07:57 ED Decision to Admit Stat 01/28/25 10:46 Consult General Surgery Routine Ordered Studies 01/28/25 04:39 CT Abd and Pelvis [CT abd pelvis IV con only] Stat Hospital Course (1) Small bowel obstruction: (2) History of resection of large bowel: Plan #Small Bowel Obstruction #history of bowel resection CT abd/pelvis 01/28/25 showing newly dilated distal small/large bowel loops, small bowel feces sign noted, however no definite transition point or obstructing lesions Reportedly this is the third bout of SBO he's had, very likely a combination of intra abominal adhesions 2/2 bowel resection and recent dietary addition of copious dried fruit. 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 Total Time Total Time Spent Total Time Spent (In Minutes): Less than 30 Discharge Plan Discharge Items Patient Disposition: Home - Self-Care Reason For Visit: ABD PAIN, SBO Discharge Diagnosis: small bowel obstruction Condition on Discharge: Serious Activity: Per Instructions section Non-emergency contact: Primary Care Provider and Oncologist Call non-emergency contact if: your symptoms worsen and your pain is not controlled Follow-up/Referrals: PCP,NO [Primary Care Provider] - Diet: Regular Addtl Attending Provider Instructions: You were evaluated and treated for small bowel obstruction, likely related to your history of abdominal surgeries and recent intake of a lot of dried fruit. Since you have been medically stable, your abdominal pain has been improving, have not been vomiting, have continued to be able to pass gas, and have been having improving oral intake, we feel comfortable with your discharge today. #Small Bowel Obstruction #history of bowel resection CT abd/pelvis 01/28/25 showing newly dilated distal small/large bowel loops, small bowel feces sign noted, however no definite transition point or obstructing lesions Reportedly this is the third bout of SBO he's had, very likely a combination of intraabominal adhesions 2/2 bowel resection and recent dietary addition of copious dried fruit. 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 Pending Studies at Discharge: No Stand-Alone Forms: My [facility] saambaa, Smoking Cessation Medications and DC Order Prescriptions: Continued triamcinolone acetonide 0.1 % cream 1 applic topical DAILY PRN (Reason: ud) clobetasol 0.05 % cream 1 applic topical DAILY PRN (Reason: Other) cyclobenzaprine 10 mg tablet 10 mg PO TID PRN (Reason: Muscle Spasms) acetaminophen 500 mg Tablet 500 mg PO Q6H PRN (Reason: Pain) clobetasol 0.05 % ointment 1 applic TOPICAL DAILY PRN (Reason: Other) Changed oxycodone 5 mg tablet 5 mg PO Q6H PRN (Reason: Pain) Qty: 10 0RF Discharge Orders: Discharge Order (Routine); Ordered 01/30/25 Ordered By: Dwight Bautista Admission Data Admit Date/Time: 01/29/25 18:29 Attending Provider: Dwight Bautista Admit Provider: Yohannes Soto V. Primary Care Provider: PCP,NO Other Providers: Dwight Bautista; Jose Marte Other Interventions: Discharge Summary Assessment (RN) Last Done: 01/30/25 15:21 Supervising Physician Co-Signing Physician Notes I personally examined the patient and verified all mann points of history and exam, discussed case, and agree with decision making with Dr Dasilva continues to feel better. Visited multiple times todayby mid afternoon he was tolerating regular food and feeling good enough to go home. Vitals noted, in general he is awake and alert pleasant no distress. HEENT normocephalic atraumatic mucous membranes moist. Breathing unlabored no accessory muscle use good effort. Skin without rashes pallor or icterus. recurrent small bowel obstructionalmost certainly adhesional. Explained extensively to patient throughout hospital stay. Now doing well and if he is safe/stable for home. Sent small prescription for oxycodone for breakthrough pain, although discussed with patient that it will probably be not nearly as effective as the hydromorphone given rapidity of onset for motility pain will often provide more reliefbut we discussed that would be reasonable to use at bedtime until he no longer has such significant pain. DVT prophylaxis with ambulation otherwise as above Resident Activity Tracking Resident Involvement: Resident Care Provided Care Provided: Adult Hospital Medicine
--- NOTE | 2025-01-30 17:53 | Billing Data ---
Date of Service January 30, 2025 Coding Level of Care Code 86872 IN/OBS DISCH 30 MIN/LESS
== END 2025-01-30 16:10 | disposition home or self-care (01) | DRG 390 ==
LOC: EDINP 03:08 → ED 03:08 → 3N 12:35